=== PATIENT | female | born 1930 | race Caucasian/White ===

== ENCOUNTER → 2016-12-20 | Outpatient (CLI) | payer OTHER | LOC: FIMAGING 15:45 | DX: Z12.31 Encounter for screening mammogram for malignant neoplasm of breast (principal) | CPT/HCPCS: G0202 ==

== ENCOUNTER → 2017-02-11 | Outpatient (CLI) | payer OTHER | LOC: BHFA 10:15 | PROVIDERS: ATTEND Internal Medicine Interventional Cardiology | DX: I48.91 Unspecified atrial fibrillation (principal); I49.5 Sick sinus syndrome; Z95.0 Presence of cardiac pacemaker ==

== ENCOUNTER → 2017-02-17 | Outpatient (CLI) | payer OTHER | LOC: BHFA 10:45 | PROVIDERS: ATTEND Internal Medicine Cardiovascular Disease | DX: I48.91 Unspecified atrial fibrillation (principal); R06.02 Shortness of breath ==

== ENCOUNTER → 2017-03-09 | Outpatient (CLI) | payer OTHER | LOC: BHFA 09:00 | PROVIDERS: ATTEND Internal Medicine Cardiovascular Disease | DX: R06.02 Shortness of breath (principal) | CPT/HCPCS: 78452; 93017; A9500; J2785 ==

== ENCOUNTER → 2017-08-22 | Outpatient (CLI) | payer OTHER | LOC: BHFA 10:45 | PROVIDERS: ATTEND Internal Medicine Cardiovascular Disease | DX: R06.02 Shortness of breath (principal); I48.91 Unspecified atrial fibrillation ==

== ENCOUNTER 2017-11-20 18:47 | Inpatient (IN) | payer OTHER ==
--- NOTE | 2017-11-20 19:06 | EDPHY ---
HPI/HX/ROS/PE/MDM Narrative: CHIEF COMPLAINT: Fever HISTORY OF PRESENT ILLNESS: The patient is an 87 y/o female with a history of a pacemaker implant, a-fib, dementia arriving via EMS complaining of a fever. Yesterday her noticed she was complaining of abdominal pain and stayed in bed all day. Today she had a fever of 38.3 degrees and a runny nose. Her found her today watching TV, but she was shaking and hot. She was also more confused than normal and had a temperature of 103 degrees. Her was concerned she was septic. Normally wears oxygen only at night. Received an influenza vaccination this year. HPI provided from . She currently believes it is June or July and does not know the year. No reports of chest pain, shortness of breath, or palpitations, no vomiting, no diarrhea, no known urinary complaints, no headache, or lightheadedness. REVIEW OF SYSTEMS: Review of systems is unobtainable from this patient because of altered mentation. 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 HEENT: Atraumatic. Eyes: No icterus, no injection. Mouth: moist mucous membranes. Pharyngeal erythema. No lesions. Neck: supple with no adenopathy. LUNGS: Clear to auscultation bilaterally, no wheezes, rhonchi or rales. CARDIAC: Regular rate and rhythm, no rubs, murmurs or gallops. ABDOMEN: Soft, nontender, nondistended, bowel sounds normal. BACK: No CVA tenderness. EXTREMITIES: No trauma. No edema. Range of motion is normal throughout. NEURO: Alert and oriented to person not date, place, or time, grossly nonfocal. SKIN: Warm to the touch and dry, no rash. PSYCHIATRIC: Normal mentation, no agitation. Portions of this note were transcribed by a medical laboratory manager. I personally performed a history, physical exam, medical decision making, and confirmed accuracy of information the transcribed note. ED Course: The patient is an 87 y/o female with a history of a pacemaker implant, a-fib, dementia arriving via EMS presenting with a fever (39.2 degrees) and hypoxia (87 %). On exam she has pharyngeal erythema and is only oriented to person. Labs, UA , EKG, and chest x-ray ordered. 1L IV NS administered. 1917: 12-LEAD EKG: Please see the full report in [facility]. My interpretation: Atrial fibrillation with a v-rate of of 68-116, and diffuse ST, T wave changes. 1999: Patient has a WBC of 12.72, lactic acid of 1.5, and a negative influenza. Her chest x-ray reveals cardiomegaly and right basilar atelectasis. 2044: Troponin is 0.041. As mentioned above, EKG does have diffuse ST and T- wave changes suggestive of ischemia. Patient's INR is 1.5 and her BNP is 9, 000. She will need to admitted for further observation for her fever, CHF, and elevated troponin. Patient and her are comfortable with this plan. 324mg PO Aspirin and 40mg IV Lasix administered. 2107: Consulted with hospitalist service, Dr. Valencia accepts admission of this patient. 2140: Patient's UA reveals a UTI. Sepsis Evaluation Note: The patient presents to the ED with potential infection identified as urinary tract infection. The patient did have evidence of sepsis with temperature greater than 38 degree Celsius, heart rate greater than 90, respiratory rate is documented 18 but the patient is hypoxic on room air, and WBC greater than 12, 000. She did not meet criteria for severe sepsis. The her INR is elevated at 1.54, however she is on anticoagulants. She did not receive 30 cc/kilos bolus of fluid secondary to her elevated BNP suggestive of congestive heart failure. Further management of the patient's fever, urinary tract infection, elevated troponin, and elevated BNP will be provided by the hospitalist service. MDM: Differential diagnosis for this patient's presenting complaint of fever, and confusion, was considered including but not limited to pneumonia, urinary tract infection, urosepsis, influenza, bacteremia. Differential for the patient's elevated troponin and EKG changes was considered including but not limited to acute coronary syndrome, demand ischemia, arrhythmia, worsening failure. - Data Points Imaging Results: Impression: 1. No pneumonia or effusion. 2. Cardiomegaly. No failure. Dictated By: Rebel Mckeon MD Imaging: I viewed and interpreted images myself Laboratory Results: Laboratory Results 11/22/17 04:32 11/22/17 04:32 Medications Given: Dabigatran (Pradaxa) 150 mg PO BID [facility] Stop: 05/20/18 08:59 Last Admin: 11/22/17 21:05 Dose: 150 mg Diltiazem HCl (Dilacor Xr) 240 mg PO DAILY [facility] Stop: 05/20/18 08:59 Last Admin: 11/22/17 08:19 Dose: 240 mg Dorzolamide/Timolol (Cosopt) 1 drops LEFTEYE BID [facility] Stop: 05/20/18 08:59 Last Admin: 11/22/17 21:12 Dose: 1 drop Levofloxacin (Levaquin) 750 mg PO Q2D@2100 [facility] Stop: 12/22/17 20:59 Last Admin: 11/22/17 21:05 Dose: 750 mg Losartan Potassium (Cozaar) 100 mg PO DAILY [facility] Stop: 05/20/18 08:59 Last Admin: 11/22/17 08:20 Dose: 100 mg Metronidazole (Flagyl) 500 mg PO Q8HRS [facility] PRN Reason: Protocol Stop: 12/21/17 21:59 Last Admin: 11/23/17 04:02 Dose: 500 mg Miscellaneous Medication (Memantine Hcl [Namenda Xr]) 28 mg PO HS [facility] Stop: 05/20/18 20:59 Last Admin: 11/23/17 02:07 Dose: Not Given Sildenafil Citrate (Revatio) 20 mg PO TIDMEAL [facility] Stop: 05/20/18 07:59 Last Admin: 11/22/17 18:35 Dose: 20 mg Tramadol HCl (Ultram) 50 mg PO Q6 PRN PRN Reason: MODERATE PAIN Stop: 05/20/18 05:13 Last Admin: 11/23/17 04:02 Dose: 50 mg Discontinued Medications Acetaminophen (Tylenol) 1,000 mg PO EDNOW ONE Stop: 11/20/17 20:14 Last Admin: 11/20/17 20:14 Dose: 1,000 mg Aspirin (Aspirin) 324 mg PO EDNOW ONE Stop: 11/20/17 20:47 Last Admin: 11/20/17 20:53 Dose: 324 mg Furosemide (Lasix Injection) 40 mg IVP EDNOW ONE Stop: 11/20/17 20:47 Last Admin: 11/20/17 20:53 Dose: 40 mg Sodium Chloride (Ns) 1,000 mls @ 0 mls/hr IV ONCE ONE PRN Reason: Wide Open Stop: 11/20/17 19:15 Last Admin: 11/20/17 19:24 Dose: 1,000 mls Levofloxacin/Dextrose (Levaquin 750 Mg (Premix)) 150 mls @ 100 mls/hr IV EDNOW ONE PRN Reason: Protocol Stop: 11/20/17 23:10 Last Admin: 11/20/17 21:50 Dose: 150 mls Dextrose (D5w) 1,000 mls @ 75 mls/hr IV CONT MINO Stop: 05/20/18 11:29 Last Admin: 11/21/17 12:09 Dose: 1,000 mls Microbiology Results: MICROBIOLOGY 11/20/17 19:21 Blood Blood Culture - Preliminary Escherichia Coli 11/20/17 19:21 Blood Blood Panel (PCR) - Final Escherichia Coli 11/20/17 19:45 Blood Blood Culture - Preliminary Escherichia Coli 11/20/17 19:40 Urine,Clean Catch Urine Culture - Final Escherichia Coli General Time Seen by Provider: 11/20/17 18:50 Initial Vital Signs: Initial Vital Signs Temperature (C) 39.2 C H 11/20/17 18:53 Heart Rate 111 H 11/20/17 18:53 Respiratory Rate 18 11/20/17 18:53 Blood Pressure 143/77 H 11/20/17 18:53 O2 Sat (%) 87 L 11/20/17 18:53 O2 Delivery Mode Nasal Cannula O2 (L/minute) 2 Allergies/Adverse Reactions: Penicillins Allergy (Verified 02/04/15 11:04) Sulfa (Sulfonamide Antibiotics) Allergy (Verified 02/04/15 11:04) Home Medications: Medication Instructions Recorded Carvedilol Cr [Coreg Cr] 40 mg PO BID@02/04/15 Diltiazem HCl [Cartia Xt] 240 mg PO DAILY 02/04/15 Dorzolamide HCl/Timolol Maleat 1 drop LEFTEYE BID 02/04/15 [Dorzolamide-Timolol Eye Drops] Hydrocodone/Acetaminophen [[place] 1 tab PO DAILY@0500 02/04/15 5/325 (*)] Losartan Potassium [Cozaar 50 mg 100 mg PO DAILY 02/04/15 (*)] Memantine HCl [Namenda Xr] 28 mg PO HS 02/04/15 Dabigatran Etexilate Mesyl 150 mg PO BID 02/05/15 [Pradaxa 150 MG (*)] Furosemide [Lasix 40 MG (*)] 40 mg PO DAILY 11/20/17 Herbals/Supplements -Info Only 1 ea PO DAILY 11/20/17 Mirtazapine 15 mg PO HS PRN 11/20/17 Sildenafil Citrate [Revatio 20 MG 20 mg PO TIDMEAL 11/20/17 (*)] traMADol [Ultram 50 mg (*)] 50 mg PO Q6 PRN 11/20/17 Departure - Departure Disposition: [facility] Acute Clinical Impression: Elevated troponin Fever Qualifiers: Fever type: unspecified Qualified Code(s): R50.9 - Fever, unspecified CHF (congestive heart failure) Qualifiers: Congestive heart failure type: unspecified Congestive heart failure chronicity : acute Qualified Code(s): I50.9 - Heart failure, unspecified UTI (urinary tract infection) Qualifiers: Urinary tract infection type: site unspecified Hematuria presence: without hematuria Qualified Code(s): N39.0 - Urinary tract infection, site not specified Condition: Fair Report Scribed for: Danielle Bonilla Report Scribed by: Mariza Nelson Date of Report: 11/20/17 Time of Report: 19:01
[2017-11-20] MEDS ORDERED: NS 1,000 ML IV ONE (19:14)
[2017-11-20 19:17] LABS: PLATELET COUNT 172 10^3/uL (150-400)
--- NOTE | 2017-11-20 19:20 | CPEKG ---
Heart Rate: 98 RR Interval: 612 QRSD Interval: 102 QT Interval: 332 QTC Interval: 424 QRS [place]: -8 T Wave [place]: 137 EKG Severity - ABNORMAL ECG - EKG Impression: ATRIAL FIBRILLATION, V-RATE 68-116 EKG Impression: REPOL ABNRM SUGGESTS ISCHEMIA, LATERAL LEADS Electronically Signed By: Danielle Bonilla 21-Nov-2017 15:49:21
[2017-11-20 19:51] LABS: INR 1.54 (0.83-1.16); PROTIME(PATIENT) 18.6 SEC (12.0-15.0)
[2017-11-20] MEDS ORDERED: ACETAMINOPHEN 500 MG TAB PO ONE (20:13)
[2017-11-20] MEDS ORDERED: ASPIRIN 81 MG CHEWABLE TAB PO ONE (20:46)
[2017-11-20] MEDS ORDERED: FUROSEMIDE 40 MG/4 ML VIAL IVP ONE (20:46)
[2017-11-20] MEDS ORDERED: ONDANSETRON 4 MG/2 ML VIAL IVP PRN (22:20)
[2017-11-20] MEDS ORDERED: ONDANSETRON DISINTEGRATING 4 MG TAB PO PRN (22:20)
[2017-11-20] MEDS ORDERED: ACETAMINOPHEN 325 MG TAB PO PRN (22:20)
--- NOTE | 2017-11-21 01:12 | PDGENHP ---
History and Physical - Chief Complaint Fatigue - History of Present Illness 87 yo F w/ AF presents with fever, fatigue, and mild confusion. Patient reports symptoms of primarily fatigue for 2 days. Then today she was noted to be febrile and mildly confused. She was brought in to the ED as a result. Evaluation in the ED notable for clearly infectious UA, leukocytosis, and fever. Patient reports this is similar to previous presentations for UTI. History Information - Allergies/Home Medication List Allergies/Adverse Reactions: Penicillins Allergy (Verified 02/04/15 11:04) Sulfa (Sulfonamide Antibiotics) Allergy (Verified 02/04/15 11:04) Home Medications: Carvedilol Cr [Coreg Cr] 40 mg PO BID 02/04/15 [Last Taken 11/18/17] Diltiazem HCl [Cartia Xt] 240 mg PO DAILY 02/04/15 [Last Taken 11/18/17] Dorzolamide HCl/Timolol Maleat [Dorzolamide-Timolol Eye Drops] 1 drop LEFTEYE BID 02/04/15 [Last Taken Unknown] Hydrocodone/Acetaminophen [[place] 5/325 (*)] 1 tab PO DAILY@0500 02/04/15 [Last Taken 11/18/17] Losartan Potassium [Cozaar 50 mg (*)] 100 mg PO DAILY 02/04/15 [Last Taken 11/18] Memantine HCl [Namenda Xr] 28 mg PO HS 02/04/15 [Last Taken 11/18/17] Dabigatran Etexilate Mesyl [Pradaxa 150 MG (*)] 150 mg PO BID 02/05/15 [Last Taken 11/18/17] Furosemide [Lasix 40 MG (*)] 40 mg PO DAILY 11/20/17 [Last Taken 11/18/17] Herbals/Supplements -Info Only 1 ea PO DAILY 11/20/17 [Last Taken Unknown] Mirtazapine 15 mg PO HS PRN 11/20/17 [Last Taken 11/18/17] Sildenafil Citrate [Revatio 20 MG (*)] 20 mg PO TIDMEAL 11/20/17 [Last Taken 12/04] traMADol [Ultram 50 mg (*)] 50 mg PO Q6 PRN 11/20/17 [Last Taken 11/18/17] I have personally reviewed and updated: family history, medical history - Past Medical History atrial fibrillation - Family History Positive for: cancer - Social History Smoking Status: Never smoked Review of Systems Review of Systems: ROS: 10pt was reviewed & negative except for what was stated in HPI & below Physical Exam Physical Exam: Temp Pulse Resp BP Pulse Ox 36.8 C 87 17 128/76 H 94 11/20/17 22:00 11/20/17 22:00 11/20/17 22:00 11/20/17 22:00 11/20/17 22:00 O2 (L/minute) 2 Constitutional: no apparent distress, not in pain Eyes: PERRL, EOMI Ears, Nose, Mouth, Throat: moist mucous membranes, no oral mucosal ulcers Cardiovascular: systolic murmur, irregularly irregular Respiratory: no respiratory distress, clear to auscultation Gastrointestinal: normoactive bowel sounds, soft, non-tender abdomen Skin: warm, normal color Musculoskeletal: full muscle strength, no muscle tenderness Neurologic: CN II-XII Intact, other (A&Ox2) Psychiatric: interacting appropriately, not anxious Lab Data & Imaging Review 11/20/17 18:57 11/20/17 18:57 WBC 12.72 10^3/uL (3.80-9.50) H 11/20/17 18:57 RBC 4.40 10^6/uL (4.18-5.33) 11/20/17 18:57 Hgb 14.8 g/dL (12.6-16.3) 11/20/17 18:57 Hct 43.3 % (38.0-47.0) 11/20/17 18:57 MCV 98.4 fL (81.5-99.8) 11/20/17 18:57 MCH 33.6 pg (27.9-34.1) 11/20/17 18:57 MCHC 34.2 g/dL (32.4-36.7) 11/20/17 18:57 RDW 14.2 % (11.5-15.2) 11/20/17 18:57 Plt Count 172 10^3/uL (150-400) 11/20/17 18:57 MPV 10.8 fL (8.7-11.7) 11/20/17 18:57 Neut % (Auto) 87.0 % (39.3-74.2) H 11/20/17 18:57 Lymph % (Auto) 8.3 % (15.0-45.0) L 11/20/17 18:57 [place] % (Auto) 3.5 % (4.5-13.0) L 11/20/17 18:57 Eos % (Auto) 0.0 % (0.6-7.6) L 11/20/17 18:57 Baso % (Auto) 0.5 % (0.3-1.7) 11/20/17 18:57 Nucleat RBC Rel Count 0.0 % (0.0-0.2) 11/20/17 18:57 Absolute Neuts (auto) 11.07 10^3/uL (1.70-6.50) H 11/20/17 18:57 Absolute Lymphs (auto) 1.05 10^3/uL (1.00-3.00) 11/20/17 18:57 Absolute Monos (auto) 0.45 10^3/uL (0.30-0.80) 11/20/17 18:57 Absolute Eos (auto) 0.00 10^3/uL (0.03-0.40) L 11/20/17 18:57 Absolute Basos (auto) 0.06 10^3/uL (0.02-0.10) 11/20/17 18:57 Absolute Nucleated RBC 0.00 10^3/uL (0-0.01) 11/20/17 18:57 Immature Gran % 0.7 % (0.0-1.1) 11/20/17 18:57 Immature Gran # 0.09 10^3/uL (0.00-0.10) 11/20/17 18:57 PT 18.6 SEC (12.0-15.0) H 11/20/17 19:00 INR 1.54 (0.83-1.16) H 11/20/17 19:00 APTT 44.5 SEC (23.0-38.0) H 11/20/17 19:00 VBG Lactic Acid 1.4 mmol/L (0.7-2.1) 11/20/17 19:21 Sodium 146 mEq/L (135-145) H 11/20/17 18:57 Potassium 4.6 mEq/L (3.5-5.2) 11/20/17 18:57 Chloride 108 mEq/L (97-110) 11/20/17 18:57 Carbon Dioxide 16 mEq/l (22-31) L 11/20/17 18:57 Anion Gap 22 mEq/L (8-16) H 11/20/17 18:57 BUN 27 mg/dL (7-23) H 11/20/17 18:57 Creatinine 0.9 mg/dL (0.6-1.0) 11/20/17 18:57 Estimated GFR 59 11/20/17 18:57 Glucose 139 mg/dL (70-100) H 11/20/17 18:57 Calcium 10.4 mg/dL (8.5-10.4) 11/20/17 18:57 Total Bilirubin 1.9 mg/dL (0.1-1.4) H 11/20/17 19:30 Conjugated Bilirubin 0.7 mg/dL (0.0-0.5) H 11/20/17 19:30 Unconjugated Bilirubin 1.2 mg/dL (0.0-1.1) H 11/20/17 19:30 AST 43 IU/L (14-46) 11/20/17 19:30 ALT 14 IU/L (9-52) 11/20/17 19:30 Alkaline Phosphatase 73 IU/L (38-126) 11/20/17 19:30 Troponin I 0.041 ng/mL (0.000-0.034) H 11/20/17 19:21 NT-Pro-B Natriuret Pep 9260 pg/mL (0-450) H 11/20/17 19:21 Total Protein 7.9 g/dL (6.3-8.2) 11/20/17 19:30 Albumin 4.3 g/dL (3.5-5.0) 11/20/17 19:30 Lipase 66 IU/L (23-300) 11/20/17 19:30 Urine Color YELLOW 11/20/17 20:40 Urine Appearance MODERATELY TURBID 11/20/17 20:40 Urine pH 5.0 (5.0-7.5) 11/20/17 20:40 Ur Specific [place] 1.016 (1.002-1.030) 11/20/17 20:40 Urine Protein 2+ (NEGATIVE) H 11/20/17 20:40 Urine Ketones NEGATIVE (NEGATIVE) 11/20/17 20:40 Urine Blood 2+ (NEGATIVE) H 11/20/17 20:40 Urine Nitrate NEGATIVE (NEGATIVE) 11/20/17 20:40 Urine Bilirubin NEGATIVE (NEGATIVE) 11/20/17 20:40 Urine Urobilinogen NEGATIVE EU (0.2-1.0) 11/20/17 20:40 Ur Leukocyte Esterase 2+ (NEGATIVE) H 11/20/17 20:40 Urine RBC 25-50 /hpf (0-3) H 11/20/17 20:40 Urine WBC 50-182 /hpf (0-3) H 11/20/17 20:40 Ur Epithelial Cells TRACE /lpf (NONE-1+) 11/20/17 20:40 Urine Bacteria 4+ /hpf (NONE SEEN) H 11/20/17 20:40 Urine Mucus 3+ /lpf (NONE-1+) H 11/20/17 20:40 Urine Glucose NEGATIVE (NEGATIVE) 11/20/17 20:40 Nasal Influenza A PCR NEGATIVE FOR FLU A (NEGATIVE) 11/20/17 18:57 Nasal Influenza B PCR NEGATIVE FOR FLU B (NEGATIVE) 11/20/17 18:57 Imaging Review: Imaging Impressions Chest X-Ray 11/20/17 19:11 Impression: 1. No pneumonia or effusion. 2. Cardiomegaly. No failure. Visualized and Interpreted EKG results: Yes EKG Interpretation: Positive for: other (Atrial fibrillation) Assessment & Plan Assessment: 87 yo F w/ AF presents with fever and fatigue found to have a UTI. Plan: 1. Sepsis 2/2 UTI - Sepsis per fever, tachycardia, and leukocytosis. Source most likely urinary tract infection noting clearly infectious UA, normal CXR, and lack of localizing symptoms. Patient has a severe beta-lactam allergy as she reports anaphylaxis 10 years ago while in [place]. Flu negative. - Levofloxacin 750 mg IV qD noting severe B-lactam allergy - Blood and urine cultures ordered 2. Abnormal LFTs - Mildly elevated bilirubin with on abdominal symptoms. She denies vomiting, abdominal pain, and diarrhea. - Trend LFTs 3. Elevated troponin - Very modest elevation in setting of sepsis, suspect myocardial demand. - Monitor on telemetry, trend cardiac enzymes 4. HFpEF - Appears euvolemic on exam and no pulmonary edema on CXR despite elevated BNP. She takes furosemide 40 mg PO daily at home in addition to BB and ARB. 5. Hx AF - Takes dabigatran for AC and diltiazem for rate control. 6. pHTN - Follows with Dr. Oneal. Diet - Regular Code - Full Ppx - dabigatran Dispo - Admit under observation status
[2017-11-21 04:42] LABS: PLATELET COUNT 134 10^3/uL (150-400)
[2017-11-21] MEDS ORDERED: MIRTAZAPINE 15 MG TAB PO PRN (05:14)
--- NOTE | 2017-11-21 08:47 | HOSPPROG ---
Hospitalist Progress Note Assessment/Plan: #E coli bacteremia: IV LQ with PCN-allergy. No CVA TTP. Await culture data #UTI: plan as above #Indeterminate trop: suspect demand with bacteremia. No CP #Pulm HTN: echo 09/02 with RVSP 65mmHg #Fever: now afebrile for 24hrs. If fevers again, check renal US for abscess #Hypernatremia: resolved with D5 #Leukocytosis: improved with abx #Diet: regular #DVt ppx: Pradaxa #Disp: warrants inpatient admission for bacteremia, requires IV abx Subjective: no abd pain. s/p choley today Objective: Vital Signs Temp Pulse Resp BP Pulse Ox 36.4 C 78 17 146/77 H 98 11/21/17 04:21 11/21/17 04:21 11/21/17 04:21 11/21/17 04:21 11/21/17 04:21 Laboratory Results 11/21/17 03:55 11/21/17 03:55 11/20/17 11/21/17 11/22/17 05:59 05:59 05:59 Intake Total 1500 Output Total 400 Balance 1100 PT 18.6 SEC (12.0-15.0) H 11/20/17 19:00 INR 1.54 (0.83-1.16) H 11/20/17 19:00 - Physical Exam Constitutional: no apparent distress Eyes: PERRL Ears, Nose, Mouth, Throat: moist mucous membranes Cardiovascular: regular rate and rhythym Respiratory: no respiratory distress Gastrointestinal: normoactive bowel sounds, soft, non-tender abdomen Genitourinary: no bladder fullness, other (no CVA TTP), No no bladder tenderness Skin: warm ICD10 Worksheet Patient Problems: Problems Problem Status Onset CHF (congestive heart failure) Acute Elevated troponin Acute Fever Acute UTI (urinary tract infection) Acute Pyelonephritis Acute
[2017-11-21] MEDS ORDERED: cefTRIAXone 1 GM in STERILE WATER INJ 10 ML IV SCH (09:00)
[2017-11-21] MEDS: SILDENAFIL CITRATE 20 MG TAB PO SCH ×3 (09:24→17:14)
[2017-11-21] MEDS: DORZOLAMIDE/TIMOLOL 10 ML OPHT.BTL LEFTEYE SCH ×3 (09:24→20:41)
[2017-11-21] MEDS: LOSARTAN POTASSIUM 50 MG TAB PO SCH (09:25)
[2017-11-21] MEDS: DILTIAZEM XR 240 MG CAP PO SCH (09:25)
[2017-11-21] MEDS: DABIGATRAN ETEXILATE MESYL 150 MG CAP PO SCH ×2 (09:25→20:41)
[2017-11-21] MEDS ORDERED: D5W 1,000 ML IV SCH (11:30)
--- NOTE | 2017-11-21 12:15 | WOCRNPDOC ---
[facility] Advanced Assessment Note - Skin Integrity Problem, Advanced Assess Left Third Toe Dressing Type: Telfa Wound Bed Constitution: Scab Site Measurement - Head-to-Toe Length X Width X Depth (cm): 0.6x0.3x0 Skin Integrity Problem Comment: Per report from patient she banged her toe on her walker in September. No sign of infection. May cover with bandaid. No concerns. Wound care will not follow.
--- NOTE | 2017-11-21 14:44 | ASMTCMCOM ---
CM Note CM Note Notes: 11/21/2017 Case Management Note Discussed pt in rounds. Met w/pt and Jacob [phone]. Pt lives at [facility]. She has a manager home improvement from [facility] for wound care 1 - 2 x/week. Faxed update to [facility]. Pt has unskilled care in the mornings for help showering through [employer] [phone]. Notified both agencies of hospital admission. There are no PT evals ordered at this time. Case Management d/c poc: return to [facility] with resumption of previous services. Case Management to follow. Date Signed: 11/21/2017 02:43 PM Electronically Signed By:Edna Munoz RN
[2017-11-21] MEDS: metroNIDAZOLE 500 MG TAB PO SCH (20:40)
[2017-11-21] MEDS: traMADol 50 MG TAB PO PRN (20:41)
[2017-11-21] MEDS: Memantine Hcl [Namenda Xr] 28 MG PO SCH (21:27)
[2017-11-22] MEDS: metroNIDAZOLE 500 MG TAB PO SCH ×3 (05:31→21:18)
[2017-11-22] MEDS: DILTIAZEM XR 240 MG CAP PO SCH (08:19)
[2017-11-22] MEDS: DORZOLAMIDE/TIMOLOL 10 ML OPHT.BTL LEFTEYE SCH ×3 (08:20→21:12)
[2017-11-22] MEDS: SILDENAFIL CITRATE 20 MG TAB PO SCH ×3 (08:20→18:35)
[2017-11-22] MEDS: DABIGATRAN ETEXILATE MESYL 150 MG CAP PO SCH ×2 (08:20→21:05)
[2017-11-22] MEDS: LOSARTAN POTASSIUM 50 MG TAB PO SCH (08:20)
--- NOTE | 2017-11-22 09:30 | PDMN ---
Medical Necessity Medical necessity: Change to IP, as of 11/22/17, per MD; los >2 m for ongoing management of E coli bacteremia, UTI & C diff; admit for further monitoring, IV abx & therapy; per progress note & order 11/22/17
--- NOTE | 2017-11-22 16:23 | HOSPPROG ---
Hospitalist Progress Note Assessment/Plan: #E coli bacteremia: IV LQ with PCN-allergy. No CVA TTP. Repeat blood cultures today and transition to oral abx if remains clear #Acute C diff: Flagyl #UTI: plan as above #Indeterminate trop: suspect demand with bacteremia. No CP #Pulm HTN: echo 09/02 with RVSP 65mmHg #Fever: now afebrile for 24hrs. If fevers again, check renal US for abscess #Hypernatremia: resolved with D5 #Leukocytosis: resolved with abx #Diet: regular #Deconditioning: DC to [facility] when clinically improved #DVt ppx: Pradaxa #Disp: warrants inpatient admission for bacteremia, requires IV abx Subjective: few loose stools today. No CVA TTP Objective: Vital Signs Temp Pulse Resp BP Pulse Ox 36.7 C 71 19 122/59 H 96 11/22/17 11:57 11/22/17 11:57 11/22/17 11:57 11/22/17 11:57 11/22/17 11:57 11/21/17 11/22/17 11/23/17 05:59 05:59 05:59 Intake Total 240 Output Total 400 Balance -160 PT 18.6 SEC (12.0-15.0) H 11/20/17 19:00 INR 1.54 (0.83-1.16) H 11/20/17 19:00 - Physical Exam Constitutional: no apparent distress Eyes: PERRL Ears, Nose, Mouth, Throat: moist mucous membranes Cardiovascular: regular rate and rhythym, No edema Respiratory: no respiratory distress Gastrointestinal: normoactive bowel sounds Genitourinary: no bladder fullness Skin: warm Musculoskeletal: full muscle strength Neurologic: AAOx3, CN II-XII Intact Psychiatric: interacting appropriately ICD10 Worksheet Patient Problems: Problems Problem Status Onset CHF (congestive heart failure) Acute Elevated troponin Acute Fever Acute UTI (urinary tract infection) Acute Pyelonephritis Acute
[2017-11-23] MEDS: Memantine Hcl [Namenda Xr] 28 MG PO SCH ×2 (02:07→21:02)
[2017-11-23] MEDS: metroNIDAZOLE 500 MG TAB PO SCH ×2 (04:02→13:11)
[2017-11-23] MEDS: traMADol 50 MG TAB PO PRN ×2 (04:02→21:01)
[2017-11-23] MEDS: LOSARTAN POTASSIUM 50 MG TAB PO SCH (10:30)
[2017-11-23] MEDS: DABIGATRAN ETEXILATE MESYL 150 MG CAP PO SCH ×2 (10:31→21:01)
[2017-11-23] MEDS: DILTIAZEM XR 240 MG CAP PO SCH (10:31)
[2017-11-23] MEDS: SILDENAFIL CITRATE 20 MG TAB PO SCH ×3 (10:31→17:58)
[2017-11-23] MEDS: DORZOLAMIDE/TIMOLOL 10 ML OPHT.BTL LEFTEYE SCH ×2 (10:32→21:03)
--- NOTE | 2017-11-23 11:54 | HOSPPROG ---
Hospitalist Progress Note Assessment/Plan: #E coli bacteremia: IV LQ with PCN-allergy. No CVA TTP. Repeat blood cultures NGTD, will treat for 10 days #Acute C diff: Day 2 abx #UTI: treated with LQ #Indeterminate trop: suspect demand with bacteremia. No CP #Pulm HTN: echo 09/02 with RVSP 65mmHg #Fever: resolved #Hypernatremia: resolved with D5 #Leukocytosis: resolved with abx #Diet: regular #Deconditioning: DC to [facility] when clinically improved with home health , PT #DVt ppx: Pradaxa #Disp: warrants inpatient admission for bacteremia, C diff. If clinically stable , may be able to DC tomorrow Subjective: loose stools. Upset stomach this morning Objective: Vital Signs Temp Pulse Resp BP Pulse Ox 36.9 C 94 19 141/75 H 92 11/23/17 08:06 11/23/17 08:06 11/23/17 08:08 11/23/17 08:06 11/23/17 08:08 Laboratory Results 11/23/17 07:24 11/22/17 11/23/17 11/24/17 05:59 05:59 05:59 Intake Total 2040 Output Total 600 225 Balance 1440 -225 PT 18.6 SEC (12.0-15.0) H 11/20/17 19:00 INR 1.54 (0.83-1.16) H 11/20/17 19:00 - Physical Exam Constitutional: other (tired-appearing, sitting up in chair) Ears, Nose, Mouth, Throat: moist mucous membranes Cardiovascular: regular rate and rhythym, no murmur, rub, or gallop, edema (+1 pedal edema) Respiratory: other (few crackles left base) Gastrointestinal: normoactive bowel sounds, other (surgical incisions CDI) Genitourinary: no bladder fullness Skin: warm Musculoskeletal: generalized weakness Neurologic: AAOx3, CN II-XII Intact Psychiatric: interacting appropriately, flat affect ICD10 Worksheet Patient Problems: Problems Problem Status Onset CHF (congestive heart failure) Acute Elevated troponin Acute Fever Acute UTI (urinary tract infection) Acute Pyelonephritis Acute
[2017-11-23] MEDS: VANCOMYCIN 125 MG/2.5 ML UDL PO SCH ×2 (15:52→21:01)
[2017-11-24] MEDS: VANCOMYCIN 125 MG/2.5 ML UDL PO SCH ×2 (06:36→12:40)
[2017-11-24] MEDS: SILDENAFIL CITRATE 20 MG TAB PO SCH ×2 (08:52→12:40)
[2017-11-24] MEDS: DABIGATRAN ETEXILATE MESYL 150 MG CAP PO SCH (08:52)
[2017-11-24] MEDS: DORZOLAMIDE/TIMOLOL 10 ML OPHT.BTL LEFTEYE SCH (08:52)
[2017-11-24] MEDS: DILTIAZEM XR 240 MG CAP PO SCH (08:52)
[2017-11-24] MEDS: LOSARTAN POTASSIUM 50 MG TAB PO SCH (08:53)
[2017-11-24] MEDS ORDERED: FUROSEMIDE 20 MG TAB PO SCH (09:00)
--- NOTE | 2017-11-24 10:29 | HOSPPROG ---
Hospitalist Progress Note Assessment/Plan: #E coli bacteremia: IV LQ with PCN-allergy. No CVA TTP. Repeat blood cultures NGTD; treat 10 days from negative cultures 11/22 #Acute C diff: treat for 10 days, PO vanc #UTI: treated with LQ #Indeterminate trop: suspect demand with bacteremia. No CP #Pulm HTN: echo 09/02 with RVSP 65mmHg #Fever: resolved #Hypernatremia: resolved with D5 #Leukocytosis: resolved with abx #Sepsis: due to C diff and E Coli bacteremia. Resolved #Diet: regular #Deconditioning: DC to [facility] when clinically improved with home health , PT #DVt ppx: Pradaxa #Disp: DC to [facility] with RN, PT/OT Subjective: more formed stools. Objective: Vital Signs Temp Pulse Resp BP Pulse Ox 36.1 C 102 H 18 120/76 91 L 11/24/17 08:02 11/24/17 09:45 11/24/17 08:02 11/24/17 08:02 11/24/17 09:45 Laboratory Results 11/24/17 04:15 11/23/17 11/24/17 11/25/17 05:59 05:59 05:59 Intake Total 2040 700 Output Total 600 945 100 Balance 1440 -245 -100 PT 18.6 SEC (12.0-15.0) H 11/20/17 19:00 INR 1.54 (0.83-1.16) H 11/20/17 19:00 - Time Spent With Patient Time Spent with Patient: greater than 35 minutes Time Spent with Patient: Greater than 35 minutes spent on this patients care, greater than 50% of time spent counseling, educating, and coordinating care regarding the above mentioned plan. - Physical Exam Constitutional: no apparent distress Eyes: PERRL Ears, Nose, Mouth, Throat: moist mucous membranes Cardiovascular: regular rate and rhythym Respiratory: no respiratory distress, no rales or rhonchi Gastrointestinal: normoactive bowel sounds, No tenderness Genitourinary: no bladder fullness Skin: warm Musculoskeletal: full muscle strength Neurologic: AAOx3, CN II-XII Intact ICD10 Worksheet Patient Problems: Problems Problem Status Onset Pyelonephritis Acute Fever Acute CHF (congestive heart failure) Acute Elevated troponin Acute UTI (urinary tract infection) Acute
[2017-11-24 11:13] VITALS: TEMP 97.9
--- NOTE | 2017-11-24 11:18 | PDIAF ---
- Diagnosis Diagnosis: E coli Code Status: Full Code - Medication Management Discharge Medications: Medications to Continue on Transfer Carvedilol Cr [Coreg Cr] 40 mg PO BID@12,19 02/04/15 [Last Taken 11/18/17] Diltiazem HCl [Cartia Xt] 240 mg PO DAILY 02/04/15 [Last Taken 11/18/17] Dorzolamide HCl/Timolol Maleat [Dorzolamide-Timolol Eye Drops] 1 drop LEFTEYE BID 02/04/15 [Last Taken Unknown] Hydrocodone/Acetaminophen [Krebs 5/325 (*)] 1 tab PO DAILY@0500 02/04/15 [Last Taken 11/18/17] Losartan Potassium [Cozaar 50 mg (*)] 100 mg PO DAILY 02/04/15 [Last Taken 11/18] Memantine HCl [Namenda Xr] 28 mg PO HS 02/04/15 [Last Taken 11/18/17] Dabigatran Etexilate Mesyl [Pradaxa 150 MG (*)] 150 mg PO BID 02/05/15 [Last Taken 11/18/17] Furosemide [Lasix 40 MG (*)] 40 mg PO DAILY 11/20/17 [Last Taken 11/18/17] Herbals/Supplements -Info Only 1 ea PO DAILY 11/20/17 [Last Taken Unknown] Mirtazapine 15 mg PO HS PRN 11/20/17 [Last Taken 11/18/17] Sildenafil Citrate [Revatio 20 MG (*)] 20 mg PO TIDMEAL 11/20/17 [Last Taken 12/04] traMADol [Ultram 50 mg (*)] 50 mg PO Q6 PRN 11/20/17 [Last Taken 11/18/17] Discharge Medications: Refer to the Discharge Home Medication list for PRN reason. - Orders Services needed: Home Care, Registered Nurse, Physical Therapy, Occupational Therapy Home Care Face to Face: I certify that this patient was under my care and that I had the required [id number] encounter meeting the encounter requirements on the discharge day. My findings support the fact that the patient is homebound as defined in Home Care Face to Face Continued: CMS Chapter 7 Medicare Benefits Manual 30.1.1 , The condition of the patient is such that there exists a normal inability to leave home and consequently, leaving home would require a considerable and taxing effort. Isolation Type: CDIFF Isolation Diet Recommendation: no restrictions on diet Diet Texture: Regular Texture Diet - Follow Up Care Current Providers and Referrals: Patient,NotPresent [Unknown] - As per Instructions
[2017-11-24 11:20] VITALS: BP 124/66; PULSE 70; RESP 25; O2SAT 91
--- NOTE | 2017-11-24 20:08 | GDS ---
[f rep st] DISCHARGE SUMMARY DISCHARGE DIAGNOSES: 1. E coli bacteremia. 2. Urinary tract infection. 3. Clostridium difficile colitis. 4. Urinary tract infection, indeterminate troponin. 5. Pulmonary hypertension. 6. Fever. Hyponatremia. 7. Leukocytosis. 8. Sepsis. HISTORY OF PRESENT ILLNESS: A pleasant 87-year-old female with history of recurrent UTI, atrial fibr illation, who presented with fever, fatigue, and mild confusion. [place] more tired over the last 2 day s. She was noted at home to be febrile and mildly confused, thus was brought to the ED. She had a p ositive UA in the ER and was admitted for further evaluation. HOSPITAL COURSE BY PROBLEM: 1. Sepsis secondary to Escherichia coli bacteremia due to urinary tract infection: This resolved. She was treated with renally dosed Levaquin. Will treat for a total of 10 days from negative culture s on 11/22/2017. 2. Leukocytosis: This resolved with antibiotics. 3. Acute Clostridium difficile infection: She will be treated with 10 days of p.o. vancomycin. 4. Atrial fibrillation: Rate controlled on diltiazem and Coreg. 5. Pulmonary hypertension: Stable. This demonstrated on echo in August 2017 with an RVSP of 65 m mHg. Continue Lasix. 6. Fever: Resolved. 7. Hyponatremia: Resolved with D5. 8. Deconditioning: She will discharge back to [facility] with home health and PT. DISPOSITION: Patient is stable for discharge back to [facility] with home nurse, PT and OT. NEW MEDICATIONS: 1. Levaquin renally dosed for 3 days. 2. P.O. vancomycin. FOLLOWUP: 1. Primary care physician. 2. [place]. /[id number]/[facility]
--- NOTE | 2017-11-25 11:24 | ASDISCHSUM ---
Discharge Information Plan Status:Home with Home Health Medically Cleared to Leave:11/23/2017 Discharge Date:11/24/2017 04:06 PM CM D/C Disposition: ADT D/C Disposition:Long Term Facility Projected Discharge Date:11/24/2017 11:00 AM Transportation at D/C: Discharge Delay Reason: Follow-Up Date:11/24/2017 11:00 AM Discharge Slot: Final Diagnosis: Placement Information Referral Type:*Home Health Care Services Referral ID:[id number] Provider Name:[facility] Address 1:[address] [facility] Phone Number: Address 2: Fax Number: City:[place] Selection Factors: State:[place] Patient Contact Information Contact Name:LEILA Relationship: Address:[address] Work Phone: [facility]:[place] Alternate Phone: [facility]/Zip Code:[place] [address] Email: Financial Information Financial Class:Medicare Primary Plan Desc:MEDICARE INPATIENT Primary Plan Number:[id number] Secondary Plan Desc:[facility] POS Secondary Plan Number:[id number] Assessment Information [facility] CM Progress Note CM Note CM Note Notes: 11/21/2017 Case Management Note Discussed pt in rounds. Met w/pt and Jacob [phone]. Pt lives at [facility]. She has a home theater experience expert from [facility] for wound care 1 - 2 x/week. Faxed update to [facility]. Pt has unskilled care in the mornings for help showering through [facility] [phone]. Notified both agencies of hospital admission. There are no PT evals ordered at this time. Case Management d/c poc: return to [facility] with resumption of previous services. Case Management to follow. Date Signed: 11/21/2017 02:43 PM Electronically Signed By:Edna Munoz RN Case Management Discharge Plan Note Case Management Discharge Discharge Order Complete? Answers: Yes Patient to Obtain Answers: via Family Medications Transportation Arranged Answers: Family/Friends EMTALA Complete Answers: No Case Management Transport Answers: No Form Complete Faxed Final Orders Answers: Yes Agency/Facility Transfer Answers: Yes Report Printed & Faxed to Receiving Agency Family Notified Answers: No Discharge Comments Notes: Pts case discussed in morning rounds. Pt is being discharged back to [facility]. DC orders sent to [facility]. Family will continue w/ non skilled HC. CM available for changes. Plan: [facility], PT,OT,RN and non skilled HC Date Signed: 11/24/2017 12:13 PM Electronically Signed By:ROLAND Sanchez Intervention Information Intervention Type:*Incorrect Registration Date of Service:11/21/2017 10:24 AM Patient Type:Inpatient Staff Member:COLTON Valencia Courtney Hours: Discipline: Severity: Comment: Intervention Type:*MINOR-Signed Date of Service:11/21/2017 04:04 PM Patient Type:Observation Staff Member:Michaelle Shah Hours: Discipline: Severity: Comment: Intervention Type:*IM-Signed Date of Service:11/24/2017 12:33 PM Patient Type:Inpatient Staff Member:Michaelle Shah Hours: Discipline: Severity: Comment:
== END 2017-11-24 16:06 | DRG 872 ==
LOC: EDUNIT# → INTOOBSV 21:03 → F2W 22:00 → OBSVTOIN 11-22 09:08
PROVIDERS: ADMIT Internal Medicine; ATTEND Internal Medicine
DX: A41.51 Sepsis due to Escherichia coli [E. coli] (principal); N39.0 Urinary tract infection, site not specified; A04.72 Enterocolitis due to Clostridium difficile, not specified as recurrent; E87.1 Hypo-osmolality and hyponatremia; I27.20 Pulmonary hypertension, unspecified; I48.91 Unspecified atrial fibrillation; F03.90 Unspecified dementia, unspecified severity, without behavioral disturbance, psychotic disturbance, mood disturbance, and anxiety
CPT/HCPCS: 96365; 97116-GP; 97161-GP; 97165-GO; 97535-GO; G0378; G8978-GP-CJ; G8979-GP-CI; G8987-GO-CJ; G8988-GO-CI; G8989-GO-CI; J0696; J1940; J1956; J2405

== ENCOUNTER → 2018-01-12 | Outpatient (CLI) | payer OTHER | LOC: FIMAGING 10:34 | PROVIDERS: ATTEND Family Medicine Geriatric Medicine | DX: Z12.31 Encounter for screening mammogram for malignant neoplasm of breast (principal); Z85.3 Personal history of malignant neoplasm of breast ==

== ENCOUNTER 2018-09-24 09:22 | Inpatient (IN) | payer OTHER ==
--- NOTE | 2018-09-24 09:35 | EDPHY ---
H & P Stated Complaint: "black stool" x ~1 wk (on pradaxa), weakness, R upper abd pain Time Seen by Provider: 09/24/18 09:35 - Personal History Tetanus Vaccine Date: 2011 - Medical/Surgical History Hx Asthma: No Hx Chronic Respiratory Disease: No Hx Diabetes: No Hx Cardiac Disease: Yes Hx Renal Disease: No Hx Cirrhosis: No Hx Alcoholism: No Hx HIV/AIDS: No Hx Splenectomy or Spleen Trauma: No Other PMH: PACEMAKER, Afib, hypertension, glaucoma, - Social History Smoking Status: Never smoked Constitutional: Initial Vital Signs Temperature (C) 36.5 C 09/24/18 09:25 Heart Rate 82 09/24/18 09:25 Respiratory Rate 16 09/24/18 09:25 Blood Pressure 101/59 L 09/24/18 09:25 O2 Sat (%) 97 09/24/18 09:25 O2 Delivery Mode Room Air Allergies/Adverse Reactions: Penicillins Allergy (Verified 09/24/18 10:33) Anaphylaxis Sulfa (Sulfonamide Antibiotics) Allergy (Verified 09/24/18 10:33) Rash Home Medications: Medication Instructions Recorded Ascorbic Acid [Vitamin C 500 mg 500 mg PO DAILY 09/24/18 (*)] Coreg 09/24/18 Cozaar 09/24/18 Cyanocobalamin [Vitamin B12 (*)] 1,000 mcg PO DAILY 09/24/18 Diltiazem 09/24/18 Dorzolamide HCl/Timolol Maleat 1 drop LEFTEYE BID 09/24/18 [Dorzolamide-Timolol Eye Drops] Furosemide [Lasix 20 MG (*)] 20 mg PO SUTUTHSA 09/24/18 Furosemide [Lasix 20 MG (*)] 40 mg PO MOWEFR 09/24/18 Herbals/Supplements -Info Only 1 ea PO DAILY 09/24/18 Mirtazapine [Remeron] 15 mg PO HS PRN 09/24/18 Namenda 10 mg 09/24/18 Pradaxa 09/24/18 Spironolactone 09/24/18 Tramadol HCl 09/24/18 Medical Decision Making ED Course/Re-evaluation: CHIEF COMPLAINT: Black stool x1 week HISTORY OF PRESENT ILLNESS: The patient is an anticoagulated 88 y/o female with a history of atrial fibrillation arriving with her complaining of black stools for the last week. She describes constipation for a few days last week followed by a week of black stools. She describes unformed stools about the consistency of pudding and associated upper abdominal pain. She has never had symptoms like this before. She denies high doses of NSAIDs recently and has not been on aspirin since starting her Pradaxa. She denies nausea, vomiting, fever, cough, urinary symptoms. She has a history of a prior endoscopy that showed a "constricted esophagus" that sounds like she had dilated two years ago. REVIEW OF SYSTEMS: A comprehensive 10 system review of systems is otherwise negative aside from elements mentioned in the history of present illness and medical decision making. PHYSICAL EXAM: HR, BP, O2 Sat, RR. Temp noted General Appearance: Alert, well hydrated, appropriate, and non-toxic appearing. Head: Atraumatic without scalp tenderness or obvious injury Eyes: Pupils equal, round, reactive to light and accommodation, EOMI, no trauma , no injection. Nose: Atraumatic, no rhinorrhea, clear. Throat: Mucus membranes moist. Neck: Supple, nontender, no lymphadenopathy. Respiratory: No retractions, no distress, no wheezes, and no accessory muscle use. Lungs are clear to auscultation bilaterally. Cardiovascular: Regular rate and rhythm, no murmurs, rubs, or gallops. Good capillary refill all extremities. Gastrointestinal: Abdomen is soft, epigastric tenderness, non-distended, no masses, no rebound, no guarding, no peritoneal signs. Musculoskeletal: Normal active ROM of all extremities, atraumatic. Neurological: Alert, appropriate, and interactive. Nonfocal. Skin: No rashes, good turgor, no nodules on palpation. Past medical history: Atrial fibrillation - Pradaxa; hypertension; "constricted esophagus" 2 years ago that sounds like it was dilated per ; glaucoma Past surgical history: Endoscopy and colonoscopy in the last 2 years; pacemaker Family history: noncontributory Social history: at bedside. Retired. Lives in [place]. Prior medical records reviewed including admission 11/2017 for sepsis. DIFFERENTIAL DIAGNOSIS: The differential diagnosis for the patient's upper GI bleeding included but was not limited to ulcer disease, gastritis, Soniya- Payne tear, and esophageal varices. MEDICAL DECISION MAKING: This is an anticoagulated 88 y/o female who presents with a 1-week history of black tarry stools and abdominal pain. She has epigastric tenderness on palpation, but is alert and interactive. Presentation is consistent with upper GI bleed. Plan for IV, labs including type&screen, symptom management, and GI consult. 80mg IV Protonix ordered. Hct 30, INR elevated. Hct is usually in low to mid 40s. 1009: Consulted with Dr. Vargas GI. He will scope during admission. He does not recommend reversing Pradaxa at this time. 1gm IV TXA bolus over 10 minutes followed by a 1gm IV TXA drip ordered. Spoke with hospitalist service. Dr. Balderas accepts admission. - Data Points Laboratory Results: Laboratory Results 09/24/18 09:45 09/24/18 09:45 09/24/18 09/24/18 09/24/18 09:45 09:45 09:45 WBC RBC Hgb Hct MCV MCH MCHC RDW Plt Count MPV Neut % (Auto) Lymph % (Auto) [place] % (Auto) Eos % (Auto) Baso % (Auto) Nucleat RBC Rel Count Absolute Neuts (auto) Absolute Lymphs (auto) Absolute Monos (auto) Absolute Eos (auto) Absolute Basos (auto) Absolute Nucleated RBC Immature Gran % Immature Gran # PT 41.5 SEC H SEC (12.0-15.0) INR 4.40 H (0.83-1.16) APTT 78.2 SEC H SEC (23.0-38.0) Sodium 145 mEq/L mEq/L (135-145) Potassium 4.6 mEq/L mEq/L (3.5-5.2) Chloride 110 mEq/L mEq/L (97-110) Carbon Dioxide 21 mEq/l L mEq/l (22-31) Anion Gap 14 mEq/L mEq/L (6-14) BUN 64 mg/dL H mg/dL (7-23) Creatinine 1.8 mg/dL H mg/dL (0.6-1.0) Estimated GFR 26 Glucose 98 mg/dL mg/dL (70-100) Calcium 11.0 mg/dL H mg/dL (8.5-10.4) Phosphorus 3.4 mg/dL mg/dL (2.5-4.5) Total Bilirubin 0.5 mg/dL mg/dL (0.1-1.4) Conjugated Bilirubin 0.2 mg/dL mg/dL (0.0-0.5) Unconjugated Bilirubin 0.3 mg/dL mg/dL (0.0-1.1) AST 26 IU/L IU/L (14-46) ALT 22 IU/L IU/L (9-52) Alkaline Phosphatase 40 IU/L IU/L (38-126) Total Protein 6.6 g/dL g/dL (6.3-8.2) Albumin 3.8 g/dL g/dL (3.5-5.0) Lipase 440 IU/L H IU/L (23-300) Patient ABO/Rh O POSITIVE Antibody Screen NEGATIVE 09/24/18 09:45 WBC 9.37 10^3/uL 10^3/uL (3.80-9.50) RBC 2.75 10^6/uL L 10^6/uL (4.18-5.33) Hgb 9.7 g/dL L g/dL (12.6-16.3) Hct 29.2 % L % (38.0-47.0) MCV 106.2 fL H fL (81.5-99.8) MCH 35.3 pg H pg (27.9-34.1) MCHC 33.2 g/dL g/dL (32.4-36.7) RDW 14.8 % % (11.5-15.2) Plt Count 245 10^3/uL 10^3/uL (150-400) MPV 9.7 fL fL (8.7-11.7) Neut % (Auto) 73.9 % % (39.3-74.2) Lymph % (Auto) 15.6 % % (15.0-45.0) [place] % (Auto) 8.5 % % (4.5-13.0) Eos % (Auto) 0.9 % % (0.6-7.6) Baso % (Auto) 0.5 % % (0.3-1.7) Nucleat RBC Rel Count 0.0 % % (0.0-0.2) Absolute Neuts (auto) 6.92 10^3/uL H 10^3/uL (1.70-6.50) Absolute Lymphs (auto) 1.46 10^3/uL 10^3/uL (1.00-3.00) Absolute Monos (auto) 0.80 10^3/uL 10^3/uL (0.30-0.80) Absolute Eos (auto) 0.08 10^3/uL 10^3/uL (0.03-0.40) Absolute Basos (auto) 0.05 10^3/uL 10^3/uL (0.02-0.10) Absolute Nucleated RBC 0.00 10^3/uL 10^3/uL (0-0.01) Immature Gran % 0.6 % % (0.0-1.1) Immature Gran # 0.06 10^3/uL 10^3/uL (0.00-0.10) PT INR APTT Sodium Potassium Chloride Carbon Dioxide Anion Gap BUN Creatinine Estimated GFR Glucose Calcium Phosphorus Total Bilirubin Conjugated Bilirubin Unconjugated Bilirubin AST ALT Alkaline Phosphatase Total Protein Albumin Lipase Patient ABO/Rh Antibody Screen Medications Given: Tranexamic Acid 1,000 mg/ (Sodium Chloride) 510 mls @ 63.75 mls/hr IV ONCE ONE Stop: 09/24/18 18:10 Last Admin: 09/24/18 11:09 Dose: 510 mls Discontinued Medications Tranexamic Acid 1,000 mg/ (Sodium Chloride) 110 mls @ 660 mls/hr IV ONCE ONE Stop: 09/24/18 10:20 Last Admin: 09/24/18 10:20 Dose: 110 mls Pantoprazole Sodium (Protonix) 80 mg IVP EDNOW ONE Stop: 09/24/18 09:50 Last Admin: 09/24/18 10:09 Dose: 80 mg Departure - Departure Disposition: [facility] In[facility] Acute Clinical Impression: Upper GI bleed Condition: Fair Referrals: Nya Caballero MD [Primary Care Provider] - As per Instructions Report Scribed for: Timmy Hernandez Report Scribed by: Viviana Albright Date of Report: 09/24/18 Time of Report: 09:46
[2018-09-24] MEDS ORDERED: PANTOPRAZOLE SODIUM 40 MG VIAL IVP ONE (09:49)
[2018-09-24 09:52] LABS: PLATELET COUNT 245 10^3/uL (150-400)
[2018-09-24 10:02] LABS: INR 4.4 (0.83-1.16); PROTIME(PATIENT) 41.5 SEC (12.0-15.0)
[2018-09-24] MEDS ORDERED: TRANEXAMIC ACID 1,000 MG in NS 100 ML IV ONE (10:11)
[2018-09-24] MEDS ORDERED: TRANEXAMIC ACID 1,000 MG in NS 500 ML IV ONE (10:11)
[2018-09-24] MEDS ORDERED: traMADol 50 MG TAB PO PRN (10:45)
[2018-09-24] MEDS ORDERED: ONDANSETRON 4 MG/2 ML VIAL IVP PRN (13:01)
[2018-09-24] MEDS ORDERED: ONDANSETRON DISINTEGRATING 4 MG TAB PO PRN (13:01)
[2018-09-24] MEDS ORDERED: ACETAMINOPHEN 325 MG TAB PO PRN (13:01)
[2018-09-24] MEDS ORDERED: NS 1,000 ML IV SCH (13:15)
--- NOTE | 2018-09-24 14:24 | GHP ---
DATE OF ADMISSION: 09/24/2018 CHIEF COMPLAINT: Black stool x1 week, right upper quadrant pain. HISTORY OF PRESENT ILLNESS: The patient is a very sweet 88-year-old female, with a history of atrial fibrillation on Pradaxa. She was admitted last year with sepsis, secondary to E coli bacteremia who presented to the emergency room with weakness, right upper quadrant pain, and black stools. She describes initially suffering from constipation earlier in the week, and then, she has been having ongoing black stools. She has not noticed any bright red blood. She denies any emesis, fever, or chills. She describes feeling extremely weak. She has no appetite and has not been eating very well. She is also complaining of right upper quadrant pain that comes and goes. It does not radiate. It is a dull pain. I am able to reproduce the pain with pressing on her right upper quadrant. She denies any fever, chills. No changes in her vision. She denies any chest pain or shortness of breath. She denies any type of urinary symptoms. Overall, she is feeling quite comfortable during my interview and is not having any significant pain. PAST MEDICAL HISTORY: 1. Chronic atrial fibrillation. 2. Sepsis, secondary to E coli bacteremia in November of 2017. 3. Urinary tract infections. 4. Clostridium difficile colitis that occurred in November 2017. 5. Pulmonary hypertension. 6. Urinary incontinence. 7. Glaucoma. 8. History of chronic narcotic use for arthritis. 9. Peripheral neuropathy. 10. Hypertension. 11. Cognitive decline. 12. Esophageal stricture, status post dilation. PAST SURGICAL HISTORY: 1. Pacemaker placement. 2. Right hip replacement. 3. Right knee replacement. 4. Back surgery. 5. Hysterectomy. 6. Lumpectomy. FAMILY HISTORY: Reviewed and noncontributory. SOCIAL HISTORY: She lives at [facility] with her . They have been x62 years. She has 4 children. She does not smoke. She has a cocktail before dinner. 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 ALLERGIES: Sulfa causes hives. Penicillin causes anaphylactic shock. MEDICATIONS: Herbal supplements daily; vitamin B12 1000 mcg daily; vitamin C 500 mg daily; Remeron 15 mg p.o. q.h.s. p.r.n.; timolol drops 1 drop to her left eye twice daily; Lasix 40 mg p.o. Tuesday, Tuesday, Fridays; Lasix 20 mg p.o. Tuesday, Tuesday, , Saturdays; tramadol 50 mg p.o. q.6 hours p.r.n. ; Aldactone 25 mg daily; Pradaxa 150 mg p.o. b.i.d., memantine 20 mg p.o. q.h.s. ; losartan potassium 100 mg daily; Dilacor 240 mg daily; and Coreg CR 40 mg daily. REVIEW OF SYSTEMS: A 10-point review of system was performed, was negative other than pertinent positives in the HPI and past medical history. PHYSICAL EXAM: GENERAL: The patient is an 88-year-old female who does not appear to be in any type of acute distress and appears to be her stated years. VITAL SIGNS: Blood pressure is 104/40, heart rate is 62, respiratory rate is 12 , O2 sats on room air 95%, temperature is 36.3 Celsius. HEENT: Pupils are equal reactive. EOMs are intact. No conjunctival injection noted. Slightly hard of hearing. Oral airway is dry. NECK: Trachea is midline. CARDIOVASCULAR: She is in a regular rate and rhythm. No rubs or gallops noted. CHEST: Lungs normal respiratory effort. Clear without wheezing, rales , rhonchi. ABDOMEN: Soft. It is tender in the right upper quadrant without rebound or guarding. LYMPHATIC: She has no lymphadenopathy noted. SKIN: No rashes. She is pale. MUSCULOSKELETAL: Equal upper lower and upper extremity strength. PSYCHIATRIC: She is alert and oriented. Normal mood, affect. Normal judgment, insight, and normal memory. DATA REVIEWED: CBC shows a white blood cell count of 9.37, RBC of 2.75, hemoglobin 9.7, hematocrit of 29.2, MCV of 106.2. Coagulation: Pro time is 41.5, INR 4.4, PTT is 78.2. Chemistries: Sodium is 145, potassium 4.6, chloride of 110, CO2 of 21, anion gap of 14, BUN of 64, creatinine of 1.8, calcium is 11. Total bilirubin is 0.5, conjugated is 0.2, unconjugated is 0.3, AST 26, ALT is 22, lipase of 440. I reviewed the patient's care with Dr. Hernandez in the emergency room. ASSESSMENT/PLAN: 1. Upper gastrointestinal bleed: She was given tranexamic acid in the ER. Will place her on a proton pump inhibitor intravenous b.i.d. Will do serial H and H is we will hold her Pradaxa. I spoke with Dr. Lucio Vargas who will evaluate the patient later this evening. If her hemoglobin and hematocrit should drop quickly, he will see her sooner. 2. Right upper quadrant pain: She is quite tender with palpation to her right upper quadrant. Will get her gallbladder further evaluated. Liver enzymes are stable. 3. Acute renal insufficiency: Her creatinine is elevated compared to her baseline. I suspect it is because she has not been eating much. Will gently hydrate her with normal saline and recheck her in the morning. 4. Atrial fibrillation: Resume her beta-ruben and her calcium-channel ruben. Holding oral anticoagulation in the setting of a bleed. 5. Hypertension: She is slightly hypotensive. Will place parameters as when to give and when to hold her blood pressure medications. 6. History of severe Clostridium difficile colitis: Will avoid any type of antibiotics unless needed during this stay. 7. Glaucoma: Resumed her eye drops. 8. Deep venous thrombosis prophylaxis: Contraindicated due to a gastrointestinal bleed. Will order Athrombic pumps and ALDO hose. 9. Code status: Full. 10. Length of stay: She will be made observation status. This can be re- evaluated during her stay. /[id number]/[facility] MTDD
--- NOTE | 2018-09-24 17:47 | SOAPPROG ---
SOAP Progress Note Assessment/Plan: Assessment: Plan: 09/24/18 17:47 GI note See dictated consult. Npo after midnight. Will plan on EGD tomorrow. Objective: Vital Signs Temp Pulse Resp BP Pulse Ox 36.6 C 67 16 117/51 L 94 09/24/18 15:17 09/24/18 15:17 09/24/18 15:17 09/24/18 15:17 09/24/18 15:17 Laboratory Results 09/24/18 15:02 09/23/18 09/24/18 09/25/18 05:59 05:59 05:59 Intake Total 150 Output Total 200 Balance -50 PT 41.5 SEC (12.0-15.0) H 09/24/18 09:45 INR 4.40 (0.83-1.16) H 09/24/18 09:45 ICD10 Worksheet Patient Problems: Problems Problem Status Onset Pyelonephritis Acute Fever Acute CHF (congestive heart failure) Acute Elevated troponin Acute UTI (urinary tract infection) Acute Upper GI bleed Acute
[2018-09-24] MEDS: PANTOPRAZOLE SODIUM 40 MG VIAL IVP SCH (20:33)
[2018-09-24] MEDS: DORZOLAMIDE/TIMOLOL 10 ML OPHT.BTL LEFTEYE SCH (20:36)
[2018-09-24] MEDS: MEMANTINE HCL 28 MG PO SCH (20:36)
--- NOTE | 2018-09-25 04:03 | GCON ---
DATE OF CONSULTATION: 09/24/2018 CONSULTING PHYSICIAN: Connie Ruelas NP. REASON FOR CONSULTATION: Blood in stools. CHIEF COMPLAINT: Black tarry stools. HISTORY OF PRESENT ILLNESS: The patient is an 88-year-old female with history of chronic atrial fibrillation on Pradaxa, pulmonary hypertension, peripheral neuropathy, hypertension, esophageal stricture who presents to [facility] with complaints of black stools. The patient said for the last 1 week, she has had approximately 3-4 black bowel movements each day. She also has had complaints of an intermittent right upper quadrant pain. This pain can last hours is often exacerbated by eating with no alleviating factors. She denies any significant nonsteroidal anti-inflammatory use. She does complain of being weak. She denies any nausea, vomiting, dysphagia, or odynophagia. She also denies any bright red blood per rectum. She did have a prior upper endoscopy and colonoscopy done 2 years ago. She denies any chest pain or shortness of breath. I am being asked by Connie Ruelas NP, to evaluate the patient in regard to her right upper quadrant abdominal pain as well as blood in stools. PAST MEDICAL HISTORY: 1. Atrial fibrillation. 2. Pulmonary hypertension. 3. C. difficile colitis. 4. Urinary incontinence. 5. Glaucoma. 6. Chronic narcotic use. 7. Peripheral neuropathy. 8. Hypertension. 9. Esophageal stricture. PAST SURGICAL HISTORY: 1. Right hip replacement. 2. Right knee replacement. 3. Back surgery. 4. Hysterectomy. 5. Lumpectomy. 6. Pacemaker. FAMILY HISTORY: No history of colon cancer. SOCIAL HISTORY: Positive alcohol. No significant tobacco use. ALLERGIES: Sulfa, penicillin. MEDICATIONS: Herbal supplements, Timolol, Lasix, Aldactone, Pradaxa, amantadine , losartan, Dilacor, and Coreg. REVIEW OF SYSTEMS: A 14-point comprehensive review of systems was asked. Pertinent positives and negatives per HPI. PHYSICAL EXAM: VITAL SIGNS: Blood pressure 104/40, pulse 68, respiration rate 12, temperature 36.3. GENERAL: Awake, alert, oriented x3. No distress. HEENT : Anicteric. Moist mucosa. NECK: No JVD. CARDIOVASCULAR: Regular rate and rhythm. Positive S1, S2. No murmurs, rubs, or gallops appreciated. LUNGS: Clear to auscultation bilaterally without wheezes, rales, or rhonchi. ABDOMEN: Soft, minimal tenderness in right upper quadrant. No guarding, no rebound. Positive bowel sounds. EXTREMITIES: No cyanosis, clubbing, or edema. NEUROLOGIC : Cranial nerves 2 through 12 grossly intact. PSYCHIATRIC: Normal affect. LYMPH: There is no lymphadenopathy. SKIN: No rash. MUSCULOSKELETAL: No obvious joint effusions or deformities. BLOOD WORK: Hemoglobin 9.7, hematocrit 29.7. Sodium 145, BUN 64, creatinine 1.8. ASSESSMENT AND PLAN: 1. Black tarry stools- with right upper quadrant pain. On no nonsteroidal anti- inflammatory drugs. She is on Pradaxa. Etiology ? peptic ulcer disease versus other? At this time, I recommend to proceed with upper endoscopy. The risks, benefits, and alternatives of the procedure were discussed in detail with the patient. The risks of infection, bleeding, perforation, and sedation were discussed. Due to her pulmonary hypertension with chronic narcotic use, she is at increased risk of sedation, and will consult Anesthesiology for further support. 3. Acute renal insufficiency. 4. Atrial fibrillation. 5. Hypertension. 6. Pulmonary hypertension. 7. History of Clostridium difficile. Thank you very much for this consultation. /[id number]/MODL MTDD
[2018-09-25 04:52] LABS: PLATELET COUNT 209 10^3/uL (150-400)
[2018-09-25] MEDS: LOSARTAN POTASSIUM 50 MG TAB PO SCH (08:53)
[2018-09-25] MEDS: DILTIAZEM XR 240 MG CAP PO SCH (08:53)
[2018-09-25] MEDS: PANTOPRAZOLE SODIUM 40 MG VIAL IVP SCH ×2 (08:54→20:59)
[2018-09-25] MEDS: CARVEDILOL CR 40 MG CAP PO SCH (08:54)
[2018-09-25] MEDS: DORZOLAMIDE/TIMOLOL 10 ML OPHT.BTL LEFTEYE SCH ×2 (09:00→20:58)
[2018-09-25] MEDS ORDERED: Herbals/Supplements -Info Only PO SCH (09:00)
--- NOTE | 2018-09-25 10:03 | ASMTCASEMG ---
Living Arrangements What is your living Answers: With Spouse arrangement? Who do you live with? Type Of Residence What kind of residence do Answers: Apartment you live in? Discharge Plan Comments Coordination Status Comments Notes: Patient is an 88yo woman who lives with her at [facility] in independent living. Patient was admitted for an upper gastrointestinal bleed, right upper quadrant pain, acute renal insufficiency, AFIB, hypertension, deep venous thrombosis prophylaxis. Patient is currently OBS. D/C plan TBD. CM will follow. Date Signed: 09/25/2018 10:02 AM Electronically Signed By:Wendy Khan LCSW
--- NOTE | 2018-09-25 11:10 | PDANEPAE ---
ANE History of Present Illness EGD ANE Past Medical History - Cardiovascular History Hx Hypertension: Yes Hx Arrhythmias: Yes Hx Chest Pain: No Hx Coronary Artery / Peripheral Vascular Disease: Yes Hx CHF / Valvular Disease: Yes Hx Palpitations: Yes - Pulmonary History Hx COPD: No Hx Asthma/Reactive Airway Disease: No Hx Oxygen in Use at Home: Yes O2 in Use at Home (L/minute): 2 Hx Sleep Apnea: Yes Sleep Apnea Screening Result - Last Documented: Positive - Endocrine History Hx Diabetes: No Obesity: mild - Chronic Pain History Chronic Pain: Yes ANE Review of Systems Review of Systems: - Exercise capacity METS (RN): 3 METS ANE Patient History - Allergies Allergies/Adverse Reactions: Penicillins Allergy (Verified 09/24/18 10:33) Anaphylaxis Sulfa (Sulfonamide Antibiotics) Allergy (Verified 09/24/18 10:33) Rash - Home Medications Home Medications: Ascorbic Acid [Vitamin C 500 mg (*)] 500 mg PO DAILY 09/24/18 [Last Taken Unknown] Carvedilol Phosphate [Coreg Cr] 40 mg PO DAILY 09/24/18 [Last Taken 09/24/18] Cyanocobalamin [Vitamin B12 (*)] 1,000 mcg PO DAILY 09/24/18 [Last Taken Unknown ] Dabigatran Etexilate Mesyl [Pradaxa 150 MG (*)] 150 mg PO BID 09/24/18 [Last Taken 09/24/18 AM] Diltiazem Xr [Dilacor Xr] 240 mg PO DAILY 09/24/18 [Last Taken 09/24/18] Dorzolamide HCl/Timolol Maleat [Dorzolamide-Timolol Eye Drops] 1 drop LEFTEYE BID 09/24/18 [Last Taken 09/24/18 AM] Furosemide [Lasix 20 MG (*)] 20 mg PO SUTUTHSA 09/24/18 [Last Taken 09/24/18] Furosemide [Lasix 20 MG (*)] 40 mg PO MOWEFR 09/24/18 [Last Taken 09/22/18] Herbals/Supplements -Info Only 1 ea PO DAILY 09/24/18 [Last Taken Unknown] Losartan Potassium 100 mg PO DAILY 09/24/18 [Last Taken 09/24/18] Memantine HCl [Memantine HCl ER] 28 mg PO HS 09/24/18 [Last Taken 09/22/18] Mirtazapine [Remeron] 15 mg PO HS PRN 09/24/18 [Last Taken Unknown] Spironolactone [Aldactone 25 MG (*)] 25 mg PO DAILY 09/24/18 [Last Taken ] traMADol [Ultram 50 mg (*)] 50 mg PO Q6H PRN 09/24/18 [Last Taken Unknown] - NPO status NPO Status: no food or drink >8 hours NPO Since - Liquids (Date): 09/24/18 NPO Since - Liquids (Time): 20:00 NPO Since - Solids (Date): 09/25/18 NPO Since - Solids (Time): 00:00 - Anes Hx Anes Hx: no prior problems - Smoking Hx Smoking Status: Never smoked - Alcohol Use Alcohol Use: Rarely - Family Anes Hx Family Anes Hx: neg - N/A ANE Labs/Vital Signs - Labs Result Diagrams: 09/25/18 04:40 09/25/18 04:40 - Vital Signs Blood Pressure: 130/64 Heart Rate: 86 Respiratory Rate: 16 O2 Sat (%): 99 Height: 167.64 cm Weight: 79.379 kg ANE Physical Exam - Airway Neck exam: FROM Mallampati Score: Class 3 - Pulmonary Pulmonary: no respiratory distress - Cardiovascular Cardiovascular: irregularly irregular - ASA Status ASA Status: III ANE Anesthesia Plan Anesthesia Plan: general endotracheal anesthesia Total IV Anesthesia: Yes
[2018-09-25] MEDS ORDERED: PROPOFOL 200 MG/20 ML VIAL ONE ×2 (11:57)
[2018-09-25] MEDS ORDERED: LIDOCAINE 2% 5 ML SDV ONE (11:59)
[2018-09-25] MEDS ORDERED: NALOXONE HCL 0.4 MG/ML INJ IVP PRN (11:59)
--- NOTE | 2018-09-25 12:37 | GIREPORT ---
Formerly [facility] Surgical Services - Endoscopy Department Patient Name: Opal Johnson Procedure Date: 09/25/2018 12:04 PM Patient Type: Inpatient Attending MD/ ER Physician: Lucio Vargas MD Procedure: Upper GI endoscopy Indications: Iron deficiency anemia, Melena Patient Profile: 88 year old female presents for evaluatin of iron deficiency anemia and melena. Providers: Lucio Vargas MD Medicines: Monitored Anesthesia Care Complications: No immediate complications. Estimated blood loss: Minimal. Description of Procedure: After obtaining informed consent, the endoscope was passed under direct vision. Throughout the procedure, the patient's blood pressure, pulse, and oxygen saturations were monitored continuously. The Endoscope was intro duced through the mouth, and advanced to the second part of duodenum. [facility] GI endoscopy was accomplished without difficulty. The patient tolerated th e procedure well. Findings: The examined esophagus was normal. A large hiatal hernia was present. Patchy mildly erythematous mucosa was found in the gastric body and in the gastric antrum. Biopsies were taken with a cold forceps for histology. Two non-bleeding superficial duodenal ulcers were found in the second portion of the duodenum. The largest lesion was 5 mm in largest dimensi on. Estimated Blood Loss: Estimated blood loss was minimal. Post Op Diagnosis: - Normal esophagus. - Large hiatal hernia. - Erythematous mucosa in the gastric body and antrum. Biopsied. - Multiple non-bleeding duodenal ulcers. - Etiology? Does have small duodenal ulcers. Cause of symptoms. Recomme nd full dose PPI BID. No NSAIDs. Recommendation: - [facility]. - Advance diet as tolerated. - Await pathology results. - Full dose PPI BID - Thank you for allowing me to participate in the care of your patient. Attending Participation: I personally performed the entire procedure. Lucio Vargas MD Lucio Vargas MD 09/25/2018 12:37:07 PM This report has been signed electronicallyLucio Vargas MD Number of Addenda: 0 Note Initiated On: 09/25/2018 12:04 PM [email or web address]
--- NOTE | 2018-09-25 12:51 | POSTANESTH ---
Post Anesthetic Evaluation Cardiovascular Status: Similar to Pre-Op Cond Respiratory Status: Similar to Pre-op Cond. Level of Consciousness/Mental Status: Can Participate in Eval Pain Control: Adequate, Prn Tx Ordered Nausea/Vomiting Control: Adequate, Prn Tx Ordered Complications Possibly Related to Anesthesia: None Noted
--- NOTE | 2018-09-25 15:38 | HOSPPROG ---
Hospitalist Progress Note Assessment/Plan: UGIB- H/H and vitals remain stable. GI consulted who will perform EGD today. On a PPI gtt. GI requesting anesthesia for sedation during EGD. -PPI gtt -await EGD -Monitor H/H KASSIDY- creatinine still elevated but trending down. Continue IVF and monitor renal function in am Afib- rate appears well controlled. on bb and CCB. continue these. monitor on telemetry Abdominal pain- continues to have RUQ ab pain. LFTs reviewed and are normal, and US abdomen also WNL. Will reassess after EGD which may be causing referred pain. glaucoma- continue timolol HTN- on coreg, dilt, and losartan. continue here PPX- No heparin, xu hose Fluids-IVNS Lytes- WNL nutrition- adat Cor-full Dispo- Gi requesting anesthesia for EGD, Will change to inpatient as this is much higher risk and she will need to recover post anesthesia. awaiting EGD under anesthesia Objective: Vital Signs Temp Pulse Resp BP Pulse Ox 36.7 C 73 16 111/53 L 98 09/25/18 13:18 09/25/18 13:18 09/25/18 13:18 09/25/18 13:18 09/25/18 13:18 Laboratory Results 09/25/18 04:40 09/25/18 04:40 09/24/18 09/25/18 09/26/18 05:59 05:59 05:59 Intake Total 450 350 Output Total 600 0 Balance -150 350 PT 41.5 SEC (12.0-15.0) H 09/24/18 09:45 INR 4.40 (0.83-1.16) H 09/24/18 09:45 Physical exam- General- NAD HEENT- PERRLA, atraumatic normocephalic. MMM and acyanotic Lungs- CTAB CV- irregularly irregular. No JVS, no pedal edema extremities- no CCE or calf pain abdomen- abodmen soft, but TTP in RUQ, no guarding or rebound, no organomegaly. - No CVA tenderness Skin- no mottling, no rashes Psych- normal mood and affect Neuro- CN2-12 intact, no focal deficits MSK- Normal ROM and strength. ICD10 Worksheet Patient Problems: Problems Problem Status Onset Upper GI bleed Acute CHF (congestive heart failure) Acute Elevated troponin Acute Fever Acute Pyelonephritis Acute UTI (urinary tract infection) Acute
--- NOTE | 2018-09-25 16:59 | SOAPPROG ---
SOAP Progress Note Assessment/Plan: Assessment: Plan: 09/24/18 17:47 GI note See dictated consult. Npo after midnight. Will plan on EGD tomorrow. 09/25/18 16:56 GI note S/p EGD with small duodenal ulcers. Duodenal ulcers source of pain and anemia? Recommend PPI BID. Ok to advance diet. Needs office f/u in [address] Chamorro is taking over the service in the am. Please call if needed. GI will sign off. Thank you for the consultation! Objective: Vital Signs Temp Pulse Resp BP Pulse Ox 36.8 C 85 16 120/65 99 09/25/18 15:40 09/25/18 15:40 09/25/18 15:40 09/25/18 15:40 09/25/18 15:40 Laboratory Results 09/25/18 04:40 09/25/18 04:40 09/24/18 09/25/18 09/26/18 05:59 05:59 05:59 Intake Total 450 350 Output Total 600 300 Balance -150 50 PT 41.5 SEC (12.0-15.0) H 09/24/18 09:45 INR 4.40 (0.83-1.16) H 09/24/18 09:45 ICD10 Worksheet Patient Problems: Problems Problem Status Onset Pyelonephritis Acute Fever Acute CHF (congestive heart failure) Acute Elevated troponin Acute UTI (urinary tract infection) Acute Upper GI bleed Acute
[2018-09-25] MEDS: MEMANTINE HCL 28 MG PO SCH (20:59)
[2018-09-25] MEDS: MIRTAZAPINE 15 MG TAB PO PRN (22:03)
[2018-09-25] MEDS: PANTOPRAZOLE SODIUM 40 MG TAB PO SCH (22:07)
[2018-09-26] MEDS: LOSARTAN POTASSIUM 50 MG TAB PO SCH (08:13)
[2018-09-26] MEDS: DILTIAZEM XR 240 MG CAP PO SCH (08:13)
[2018-09-26] MEDS: CARVEDILOL CR 40 MG CAP PO SCH (08:13)
[2018-09-26] MEDS: PANTOPRAZOLE SODIUM 40 MG TAB PO SCH ×2 (08:14→20:22)
[2018-09-26] MEDS: DORZOLAMIDE/TIMOLOL 10 ML OPHT.BTL LEFTEYE SCH ×2 (08:15→20:22)
--- NOTE | 2018-09-26 10:30 | PDMN ---
Medical Necessity Medical necessity: MCG M180 UGIB: 88 yo w/ UGIB, initially OBS for workup but pt cont w/ abd pain and elevated creatinine, hypotension and tachypnea. GI consulted, egd performed. Dx w/ large hiatal hernia, multi duodenal ulcers. Awaiting bx results. Pt remains of IVF. Cont w/ serial H/H. Pt requires additional MN for ongoing monitoring and tx of the above. Meets IP [facility] criteria for UGIB w/ hemodynamic instability, ongoing IV fluid support. Hx chronic afib, sepsis Nov 2017, UTIs, CDiff 2017, pHTN, urinary incontinence, periph neuropathy, HTN, cognitive decline, esoph stricture, pacer placement hip/ knee replacements, back surg. Change to IP status 09/25/18@[id number] per order
[2018-09-26 10:41] LABS: PLATELET COUNT 206 10^3/uL (150-400)
--- NOTE | 2018-09-26 14:14 | HOSPPROG ---
Hospitalist Progress Note Assessment/Plan: UGIB- egd yesterday with small duodenal ulcers. Patient continues to have melenic stools and H/H down from yesterday. -PPI BID -Monitor H/H KASSIDY- creatinine downtrending Afib- rate appears well controlled. on bb and CCB. continue these. monitor on telemetry Abdominal pain- better today. No evidence of stone on imaging glaucoma- continue timolol HTN- on coreg, dilt, and losartan. continue here PPX- No heparin, xu hose Fluids-IVNS Lytes- WNL nutrition- adat Cor-full Dispo- inpatient. continues to have melenic stools and does not feel safe going home. Will dc home when stable. Objective: Vital Signs Temp Pulse Resp BP Pulse Ox 36.4 C 69 20 103/43 L 97 09/26/18 12:27 09/26/18 12:27 09/26/18 12:27 09/26/18 12:27 09/26/18 12:27 Laboratory Results 09/26/18 10:20 09/26/18 10:20 09/25/18 09/26/18 09/27/18 05:59 05:59 05:59 Intake Total 500 Output Total 600 300 Balance -100 -300 PT 41.5 SEC (12.0-15.0) H 09/24/18 09:45 INR 4.40 (0.83-1.16) H 09/24/18 09:45 - Physical Exam Constitutional: no apparent distress, appears nourished, not in pain Eyes: PERRL, anicteric sclera, EOMI Ears, Nose, Mouth, Throat: moist mucous membranes, hearing normal, ears appear normal, no oral mucosal ulcers Cardiovascular: regular rate and rhythym, no murmur, rub, or gallop Respiratory: no respiratory distress, no rales or rhonchi, clear to auscultation Gastrointestinal: normoactive bowel sounds, soft, non-tender abdomen, no palpable masses Genitourinary: no bladder fullness, no bladder tenderness, no renal bruits Skin: no rashes or abrasions, no fluctuance, no induration Musculoskeletal: full muscle strength, no muscle tenderness, normal joint ROM Neurologic: AAOx3, sensation intact bilaterally Psychiatric: interacting appropriately, not anxious, not encephalopathic, thought process linear Lymph, Heme, Immunologic: no cervical LAD, no supraclavicular LAD ICD10 Worksheet Patient Problems: Problems Problem Status Onset Upper GI bleed Acute CHF (congestive heart failure) Acute Elevated troponin Acute Fever Acute Pyelonephritis Acute UTI (urinary tract infection) Acute
[2018-09-26] MEDS: MEMANTINE HCL 28 MG PO SCH (20:22)
[2018-09-26] MEDS: MIRTAZAPINE 15 MG TAB PO PRN (20:26)
--- NOTE | 2018-09-27 05:57 | CPEKG ---
Test Reason : OPEN Blood Pressure : / mmHG Vent. Rate : 061 BPM Atrial Rate : 000 BPM P-R Int : 250 ms QRS Dur : 139 ms QT Int : 447 ms P-R-T Axes : 000 085 -77 degrees QTc Int : 451 ms Ventricular-paced rhythm Confirmed by Jose Alicia ([id number]) on 09/27/2018 5:57:08 AM Referred By: Confirmed By:Jose Alicia
[2018-09-27 06:12] LABS: PLATELET COUNT 209 10^3/uL (150-400)
[2018-09-27] MEDS: LOSARTAN POTASSIUM 50 MG TAB PO SCH (09:12)
[2018-09-27] MEDS: DILTIAZEM XR 240 MG CAP PO SCH (09:12)
[2018-09-27] MEDS: CARVEDILOL CR 40 MG CAP PO SCH (09:12)
[2018-09-27] MEDS: PANTOPRAZOLE SODIUM 40 MG TAB PO SCH (09:13)
[2018-09-27] MEDS: DORZOLAMIDE/TIMOLOL 10 ML OPHT.BTL LEFTEYE SCH (09:13)
--- NOTE | 2018-09-27 09:39 | ASMTLACE ---
LACE Length of stay for Answers: 3 days current admission Acuity / Level of Answers: Yes Care: Did the patient have an inpatient admission? Comorbidities - select Answers: Opioid dependence all that apply / Chronic pain Other Notes: Pacemaker; AFib; HTN # of Emergency department Answers: 1-2 visits in the last 6 months Score: 12 Date Signed: 09/27/2018 09:39 AM Electronically Signed By:ROLAND Sanchez
--- NOTE | 2018-09-27 09:39 | ASMTCMCOM ---
CM Note CM Note Notes: CM met w/ pt for dispo planning. Therapies are recommending HC. Pt receives 2 hrs of unskilled care every am to assist w/ ADLs. Pt is not interested in HC at this time. Pt resides at [facility]. Pt reports that if she needs extra assistance [facility] is able to assist and order HC. CM available for changes. Plan: Independent Date Signed: 09/27/2018 09:38 AM Electronically Signed By:ROLAND Sanchez
--- NOTE | 2018-09-27 11:58 | PDIAF ---
- Diagnosis Code Status: Full Code - Medication Management Discharge Medications: electronically signed and located in the Home Medication List. - Orders Services needed: Physical Therapy, Occupational Therapy Isolation Type: None Diet Recommendation: no restrictions on diet Diet Texture: Regular Texture Diet Additional Instructions: Follow up with GI in two weeks. Resume your home medications. Any further bleeding and you should return to the ER. - Labs/Radiology CBC w/diff Date: 09/28/18 - Follow Up Care Current Providers and Referrals: Nya Caballero MD [Primary Care Provider] - As per Instructions
[2018-09-27 12:14] VITALS: BP 124/57
--- NOTE | 2018-09-27 13:18 | ASMTCMCOM ---
CM Note CM Note Notes: Change of plans. Pt is being discharged to [facility]. Pts is having a dental procedure tomorrow. DC orders sent to [facility]. Pts will be transporting pt back. COLTON Mayen will call to give report. CM available for changes. Plan: [facility] Date Signed: 09/27/2018 01:18 PM Electronically Signed By:ROLAND Sanchez
--- NOTE | 2018-09-27 13:19 | ASDISCHSUM ---
Discharge Information Plan Status:SNF Medically Cleared to Leave:09/26/2018 Discharge Date:09/26/2018 CM D/C Disposition: ADT D/C Disposition:[facility] Facility Projected Discharge Date:09/27/2018 11:00 AM Transportation at D/C: Discharge Delay Reason: Follow-Up Date:09/27/2018 11:00 AM Discharge Slot: Final Diagnosis: Placement Information Referral Type:*Assisted/SNF Referral ID:[id number] Provider Name:[facility] Address 1:[address] Address 2: City:[place] Selection Factors: State:[place] Patient Contact Information Contact Name:LEILA Relationship:Mack Address:[address] Work Phone: [facility]:[place] Alternate Phone: State/Zip Code:[place] [address] Email: Financial Information Financial Class:Medicare Primary Plan Desc:MEDICARE INPATIENT Primary Plan Number:[id number] Secondary Plan Desc:[facility] POS Secondary Plan Number:[id number] Assessment Information LACE LACE Length of stay for Answers: 3 days current admission Acuity / Level of Answers: Yes Care: Did the patient have an inpatient admission? Comorbidities - select Answers: Opioid dependence all that apply / Chronic pain Other Notes: Pacemaker; AFib; HTN # of Emergency department Answers: 1-2 visits in the last 6 months Score: 12 Date Signed: 09/27/2018 09:39 AM Electronically Signed By:ROLAND Sanchez [facility] Initial CM Assessment Living Arrangements What is your living Answers: With Spouse arrangement? Who do you live with? Type Of Residence What kind of residence do Answers: Apartment you live in? Discharge Plan Comments Coordination Status Comments Notes: Patient is an 88yo woman who lives with her at [facility] in independent living. Patient was admitted for an upper gastrointestinal bleed, right upper quadrant pain, acute renal insufficiency, AFIB, hypertension, deep venous thrombosis prophylaxis. Patient is currently OBS. D/C plan TBD. CM will follow. Date Signed: 09/25/2018 10:02 AM Electronically Signed By:Wendy Khan LCSW [facility] CM Progress Note CM Note CM Note Notes: CM met w/ pt for dispo planning. Therapies are recommending HC. Pt receives 2 hrs of unskilled care every am to assist w/ ADLs. Pt is not interested in HC at this time. Pt resides at [facility]. Pt reports that if she needs extra assistance [facility] is able to assist and order HC. CM available for changes. Plan: Independent Date Signed: 09/27/2018 09:38 AM Electronically Signed By:ROLAND Sanchez [facility] CM Progress Note CM Note CM Note Notes: Change of plans. Pt is being discharged to [facility]. Pts is having a dental procedure tomorrow. DC orders sent to [facility]. Pts will be transporting pt back. Tiarra, RN will call to give report. CM available for changes. Plan: [facility] Date Signed: 09/27/2018 01:18 PM Electronically Signed By:ROLAND Sanchez Intervention Information Intervention Type:*Incorrect Registration Date of Service:09/24/2018 03:26 PM Patient Type:Inpatient Staff Member:Dionna Bernard Hours: Discipline: Severity: Comment: Intervention Type:*IM-Signed Date of Service:09/25/2018 01:33 PM Patient Type:Observation Staff Member:Michaelle Shah Hours: Discipline: Severity: Comment:
--- NOTE | 2018-09-27 21:24 | PDDCSUM ---
Discharge Summary Discharge Summary: 88 year old female with pmh of afib on pradaxa who presented to the ER with complaints of black tarry stools. she was started on a PPI gtt and GI was consulted. GI performed an EGD who found small non bleeding duodenal ulcers. patients H/H stablilized and she did not require transfusion. she was started on PO PPI bid, per gi recommendations. she was discharged in good condition to snfwith recommendation to follow up with her pcp in one week. Gen- NAD HEENT- perrla, mmm pink and acyanotic, head atraumatic and normocephalic Lungs- CTABL CV- irreguarlly irregular, No MRG, no JVD abd- No guarding or rebound, no organomegaly, positive BS - no CVA tenderness Ext- No CCE or calf pain Psych- appropriate mood and affect Neuro- CN2-12 intact, no focal deficits Skin- no rashes or echymoses.
== END 2018-09-27 13:55 | DRG 378 ==
LOC: INTOOBSV 10:16 → F3E 11:59 → OBSVTOIN 09-25 19:05
PROVIDERS: ADMIT Internal Medicine; ATTEND Internal Medicine
PROC: 0DB68ZX Excision of Stomach, Via Natural or Artificial Opening Endoscopic, Diagnostic (ICD-10-PCS; principal; 2018-09-25 11:00)
DX: K26.4 Chronic or unspecified duodenal ulcer with hemorrhage (principal); K44.9 Diaphragmatic hernia without obstruction or gangrene; N17.9 Acute kidney failure, unspecified; D50.9 Iron deficiency anemia, unspecified; I48.2 Chronic atrial fibrillation; I27.20 Pulmonary hypertension, unspecified; I10 Essential (primary) hypertension; H40.9 Unspecified glaucoma; G63 Polyneuropathy in diseases classified elsewhere; Z79.01 Long term (current) use of anticoagulants; Z87.440 Personal history of urinary (tract) infections; Z96.641 Presence of right artificial hip joint; Z96.651 Presence of right artificial knee joint; Z95.0 Presence of cardiac pacemaker
CPT/HCPCS: 96374; 97116-GP; 97162-GP; 97166-GO; 97535-GO; G0378; G8978-GP-CK; G8979-GP-CI; G8987-GO-CJ; G8988-GO-CI; J2704

== ENCOUNTER 2018-10-27 13:31 | Inpatient (IN) | payer OTHER ==
--- NOTE | 2018-10-27 15:08 | EDPHY ---
H & P Time Seen by Provider: 10/27/18 15:07 HPI/ROS: CHIEF COMPLAINT: Worsening weakness HISTORY OF PRESENT ILLNESS: Admitted for gastrointestinal bleed in September, and patient describes worsening symptoms since discharge. Now she is so weak over the last day and a half that she needs help even to get out of a chair and she really can't walk anymore. None of this is focal. Not associated with headache or fever or chills. She just feels very tired and says she has no associated appetite. She says she feels sleepy. Symptoms moderate to severe at this time. Not associated with any rectal bleeding or repeated GI symptoms. REVIEW OF SYSTEMS: Eye: no change in vision ENT: no sore throat Cardiac: no chest pain or syncope Pulmonary: no cough or SOB Abdomen: no vomiting, diarrhea, abdominal pain Musculoskeletal: no back pain or neck pain Skin: no rash Neuro: no headache Constitutional: no fever : no urinary symptoms A comprehensive 10 point review of systems is otherwise negative aside from elements mentioned in the history of present illness. PAST MEDICAL HISTORY: Includes GI bleed, pacemaker, atrial fibrillation, hypertension, glaucoma Social history: , lives independently, on Pradaxa here with . General Appearance: Alert and conversant, cooperative. Eyes: No scleral icterus. ENT, Mouth: Dry mucous membranes. Respiratory: Normal respiratory effort, breath sounds equal, lungs are clear to auscultation. Cardiovascular: Regular rate and rhythm. Gastrointestinal: Abdomen is soft and non tender. Neurological: Alert, face symmetric, normal motor and sensory in extremities. Can lift each leg independently off the bed. Good calender operator helper strength bilaterally, fluent speech. Skin: Warm and dry, no rashes. Musculoskeletal: No peripheral edema. Psychiatric: Not agitated. Emergency Department course/MDM: Patient looks clinically mildly dehydrated, is quite weak and will need to be admitted as she can't really walk or stand anymore. I think it is unlikely that she has recurrent GI bleed, stroke, hypertensive emergency, acute infection. Smoking Status: Never smoked Constitutional: Initial Vital Signs Temperature (C) 37 C 10/27/18 13:38 Heart Rate 92 10/27/18 13:38 Respiratory Rate 16 10/27/18 13:38 Blood Pressure 119/63 10/27/18 13:38 O2 Sat (%) 95 10/27/18 13:38 O2 Delivery Mode Room Air Allergies/Adverse Reactions: Penicillins Allergy (Verified 10/27/18 13:36) Anaphylaxis Sulfa (Sulfonamide Antibiotics) Allergy (Verified 10/27/18 13:36) Rash Home Medications: Medication Instructions Recorded Ascorbic Acid [Vitamin C 500 mg 500 mg PO DAILY 09/24/18 (*)] Carvedilol Phosphate [Coreg Cr] 40 mg PO DAILY 09/24/18 Cyanocobalamin [Vitamin B12 (*)] 1,000 mcg PO DAILY 09/24/18 Dabigatran Etexilate Mesyl 150 mg PO BID 09/24/18 [Pradaxa 150 MG (*)] Diltiazem Xr [Dilacor Xr] 240 mg PO DAILY 09/24/18 Dorzolamide HCl/Timolol Maleat 1 drop LEFTEYE BID 09/24/18 [Dorzolamide-Timolol Eye Drops] Furosemide [Lasix 20 MG (*)] 20 mg PO DAILY 09/24/18 Herbals/Supplements -Info Only 1 ea PO DAILY 09/24/18 Losartan Potassium 100 mg PO DAILY 09/24/18 Memantine HCl [Memantine HCl ER] 28 mg PO HS 09/24/18 Mirtazapine [Remeron] 15 mg PO HS PRN 09/24/18 Spironolactone [Aldactone 25 MG 25 mg PO DAILY 09/24/18 (*)] traMADol [Ultram 50 mg (*)] 50 mg PO Q6H PRN 09/24/18 Pantoprazole Sodium [Protonix 40mg 40 mg PO BID #60 tab 09/27/18 (*)] Medical Decision Making - Diagnostics EKG Interpretation: 12-lead EKG interpreted by me; official reading is in computer system. My interpretation is ventricular paced rhythm rate 72. Imaging Results: Imaging Impressions Chest X-Ray 10/27/18 15:22 Impression: Cardiomegaly and congestive heart failure. Imaging: Discussed imaging studies w/ train caller Radiologist Differential Diagnosis: Differential diagnosis considered for weakness including but not limited to electrolyte abnormality, depression, anxiety, CVA, spinal cord abnormality, and infectious causes. Consult/Admit Bed Type: [place] [id number] - Data Points Laboratory Results: Laboratory Results 10/27/18 15:05 10/27/18 15:05 10/27/18 10/27/18 10/27/18 15:05 15:05 12:10 WBC 7.58 10^3/uL 10^3/uL (3.80-9.50) RBC 2.90 10^6/uL L 10^6/uL (4.18-5.33) Hgb 9.4 g/dL L g/dL (12.6-16.3) Hct 30.2 % L % 30.0 % L % (38.0-47.0) (38.0-47.0) MCV 104.1 fL H fL (81.5-99.8) MCH 32.4 pg pg (27.9-34.1) MCHC 31.1 g/dL L g/dL (32.4-36.7) RDW 14.6 % % (11.5-15.2) Plt Count 271 10^3/uL 10^3/uL (150-400) MPV 10.2 fL fL (8.7-11.7) Neut % (Auto) 69.4 % % (39.3-74.2) Lymph % (Auto) 18.1 % % (15.0-45.0) [place] % (Auto) 9.4 % % (4.5-13.0) Eos % (Auto) 1.7 % % (0.6-7.6) Baso % (Auto) 0.9 % % (0.3-1.7) Nucleat RBC Rel Count 0.0 % % (0.0-0.2) Absolute Neuts (auto) 5.26 10^3/uL 10^3/uL (1.70-6.50) Absolute Lymphs (auto) 1.37 10^3/uL 10^3/uL (1.00-3.00) Absolute Monos (auto) 0.71 10^3/uL 10^3/uL (0.30-0.80) Absolute Eos (auto) 0.13 10^3/uL 10^3/uL (0.03-0.40) Absolute Basos (auto) 0.07 10^3/uL 10^3/uL (0.02-0.10) Absolute Nucleated RBC 0.00 10^3/uL 10^3/uL (0-0.01) Immature Gran % 0.5 % % (0.0-1.1) Immature Gran # 0.04 10^3/uL 10^3/uL (0.00-0.10) ESR 35 MM/HR H MM/HR (0-30) Sodium 145 mEq/L mEq/L (135-145) Potassium 5.1 mEq/L mEq/L (3.5-5.2) Chloride 115 mEq/L H mEq/L (97-110) Carbon Dioxide 21 mEq/l L mEq/l (22-31) Anion Gap 9 mEq/L mEq/L (6-14) BUN 44 mg/dL H mg/dL (7-23) Creatinine 1.6 mg/dL H mg/dL (0.6-1.0) Estimated GFR 30 Glucose 105 mg/dL H mg/dL (70-100) Calcium 10.7 mg/dL H mg/dL (8.5-10.4) Phosphorus 3.6 mg/dL mg/dL (2.5-4.5) C-Reactive Protein Vitamin B12 Procalcitonin TSH 10/27/18 12:10 WBC RBC Hgb Hct MCV MCH MCHC RDW Plt Count MPV Neut % (Auto) Lymph % (Auto) [place] % (Auto) Eos % (Auto) Baso % (Auto) Nucleat RBC Rel Count Absolute Neuts (auto) Absolute Lymphs (auto) Absolute Monos (auto) Absolute Eos (auto) Absolute Basos (auto) Absolute Nucleated RBC Immature Gran % Immature Gran # ESR Sodium Potassium Chloride Carbon Dioxide Anion Gap BUN Creatinine Estimated GFR Glucose Calcium Phosphorus C-Reactive Protein < 5.0 mg/L mg/L (<10.0) Vitamin B12 678 pg/mL pg/mL (239-931) Procalcitonin 0.07 ng/mL ng/mL (0.02-0.10) TSH 1.850 uIU/mL uIU/mL (0.465-4.680) Medications Given: Dabigatran (Pradaxa) 150 mg PO BID MINO Stop: 04/25/19 20:59 Last Admin: 10/27/18 20:11 Dose: 150 mg Dorzolamide/Timolol (Cosopt) 1 drops LEFTEYE BID MINO Stop: 04/25/19 20:59 Last Admin: 10/27/18 20:12 Dose: 1 drop Sodium Chloride (Ns) 1,000 mls @ 75 mls/hr IV CONT MINO Stop: 10/28/18 07:49 Last Admin: 10/27/18 20:04 Dose: 1,000 mls Miscellaneous Medication (Memantine Hcl [Memantine Hcl Er]) 28 mg PO HS MINO Stop: 04/25/19 20:59 Last Admin: 10/27/18 20:10 Dose: Not Given Pantoprazole Sodium (Protonix) 40 mg PO BID MINO Stop: 04/25/19 20:59 Last Admin: 10/27/18 20:11 Dose: 40 mg Discontinued Medications Sodium Chloride (Ns) 1,000 mls @ 0 mls/hr IV EDNOW ONE; Wide Open PRN Reason: Protocol Stop: 10/27/18 15:23 Last Admin: 10/27/18 15:37 Dose: 1,000 mls Departure - Departure Disposition: [facility] Acute Clinical Impression: Weakness Condition: Fair
[2018-10-27 15:17] LABS: PLATELET COUNT 271 10^3/uL (150-400)
[2018-10-27] MEDS ORDERED: NS 1,000 ML IV ONE (15:22)
--- NOTE | 2018-10-27 15:25 | CPEKG ---
Test Reason : OPEN Blood Pressure : / mmHG Vent. Rate : 072 BPM Atrial Rate : 000 BPM P-R Int : 140 ms QRS Dur : 147 ms QT Int : 403 ms P-R-T Axes : 134 087 -64 degrees QTc Int : 442 ms Ventricular-paced rhythm Confirmed by Luis Cox ([id number]) on 10/27/2018 3:24:38 PM Referred By: Confirmed By:Luis Cox
[2018-10-27] MEDS ORDERED: ONDANSETRON 4 MG/2 ML VIAL IVP PRN (18:18)
[2018-10-27] MEDS ORDERED: ONDANSETRON DISINTEGRATING 4 MG TAB PO PRN (18:18)
[2018-10-27] MEDS ORDERED: ACETAMINOPHEN 325 MG TAB PO PRN (18:18)
[2018-10-27] MEDS ORDERED: NS 1,000 ML IV SCH (18:30)
[2018-10-27] MEDS ORDERED: traMADol 50 MG TAB PO PRN (18:46)
--- NOTE | 2018-10-27 19:09 | HOSPPROG ---
Hospitalist Progress Note Assessment/Plan: Pt seen and examined in conjunction with CREATIVE DEVELOPER. Progressive weakness since her GI bleed in September. She says she has been waking up in the am and then going to her chair and remaining there all day until bed time. afebrile. no cp or sob. no n/v/d. good oral intake. no focal weakness. no increased leg swelling. #Generalized Weakness #CHF #Afib, Chronic AC #HTN #KASSIDY #Bacteriuria Plan: Agree with CREATIVE DEVELOPER's A/P per her H&P volume looks optimized. BP is stable and no signs of orthostatics. She is on a number agents which have been continued. Will check orthostatics Low suspicion for infection. Given profound weakness will check UCx. no abx for now The etiology of her weakness is likely due to being stationary most of the day. She will need rehab. PT to follow She is on AC and this will be continued for now but likely she is a high fall risk and may benefit from stopping this and transitioning to an Aspirin only repeat BMP in a.m. , s/p 1 L NS Subjective: no cp or sob. no n/v Objective: Vital Signs Temp Pulse Resp BP Pulse Ox 36.6 C 78 18 141/85 H 97 10/27/18 18:02 10/27/18 18:02 10/27/18 18:02 10/27/18 18:02 10/27/18 18:02 10/26/18 10/27/18 10/28/18 05:59 05:59 05:59 Intake Total 700 Balance 700 - Physical Exam Constitutional: no apparent distress Eyes: PERRL Ears, Nose, Mouth, Throat: moist mucous membranes, hearing normal Cardiovascular: regular rate and rhythym, No edema Respiratory: no respiratory distress, no rales or rhonchi, reduced air movement Gastrointestinal: normoactive bowel sounds Skin: warm Musculoskeletal: generalized weakness Neurologic: AAOx3 Psychiatric: interacting appropriately, not anxious, not encephalopathic ICD10 Worksheet Patient Problems: Problems Problem Status Onset CHF (congestive heart failure) Acute Elevated troponin Acute Fever Acute Pyelonephritis Acute UTI (urinary tract infection) Acute Upper GI bleed Acute
--- NOTE | 2018-10-27 19:39 | PDGENHP ---
History and Physical - Chief Complaint Generalized weakness - History of Present Illness This is an 88 y/o female with history of atrial fibrillation and pacemaker presenting with generalized weakness. She was admitted in September for a gastrointestinal bleed and since that time, she feels like she has progressively worsened as far as weakness, lack of appetite, and poor oral intake. She chronically wear 2LNC of supplemental oxygen at home and lives a sedentary lifestyle. She has not needed to increase her oxygen at home. She has obstructive sleep apnea and wears a CPAP at bedtime. She has normal BMs and is incontinent of urine however this is not new to her. 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 Denies chest pains, nausea, vomiting, fevers, chills. EKG reveals ventricular paced and CXR reveals cardiomegaly and mild congestive heart failure, no acute processes. Past Medical/Surgical History 1. Atrial Fibrillation (On Pradaxa) 2. Pacemaker (2010) 3. Tricuspid valve insufficiency 4. Pulmonary Hypertension 5. Hypertension 6. Glaucoma 7. STEVEN with CPAP 8. Right hip replacement 9. Right knee replacement 10. Back surgery 11. Lumpectomy Social 1. 2. Lives at [facility] 3. Former smoke. Denies illicit drug use. Drinks 2-3 alcohol beverages/day. Either wine or gin and tonic. History Information - Allergies/Home Medication List Allergies/Adverse Reactions: Penicillins Allergy (Verified 10/27/18 13:36) Anaphylaxis Sulfa (Sulfonamide Antibiotics) Allergy (Verified 10/27/18 13:36) Rash Home Medications: Ascorbic Acid [Vitamin C 500 mg (*)] 500 mg PO DAILY 09/24/18 [Last Taken Unknown] Carvedilol Phosphate [Coreg Cr] 40 mg PO DAILY 09/24/18 [Last Taken 10/27/18] Cyanocobalamin [Vitamin B12 (*)] 1,000 mcg PO DAILY 09/24/18 [Last Taken Unknown ] Dabigatran Etexilate Mesyl [Pradaxa 150 MG (*)] 150 mg PO BID 09/24/18 [Last Taken 10/27/18 09:00] Diltiazem Xr [Dilacor Xr] 240 mg PO DAILY 09/24/18 [Last Taken 10/27/18] Dorzolamide HCl/Timolol Maleat [Dorzolamide-Timolol Eye Drops] 1 drop LEFTEYE BID 09/24/18 [Last Taken 09/24/18 AM] Furosemide [Lasix 20 MG (*)] 20 mg PO DAILY 09/24/18 [Last Taken 09/24/18] Herbals/Supplements -Info Only 1 ea PO DAILY 09/24/18 [Last Taken Unknown] Losartan Potassium 100 mg PO DAILY 09/24/18 [Last Taken 09/24/18] Memantine HCl [Memantine HCl ER] 28 mg PO HS 09/24/18 [Last Taken 09/22/18] Mirtazapine [Remeron] 15 mg PO HS PRN 09/24/18 [Last Taken Unknown] Spironolactone [Aldactone 25 MG (*)] 25 mg PO DAILY 09/24/18 [Last Taken ] traMADol [Ultram 50 mg (*)] 50 mg PO Q6H PRN 09/24/18 [Last Taken Unknown] I have personally reviewed and updated: family history, medical history, social history, surgical history Past Medical History: See HPI list - Past Medical History atrial fibrillation - Surgical History Additional surgical history: See HPI list - Family History Positive for: cancer Additional family history: [place]. CVA. HTN - Social History Smoking Status: Never smoked Alcohol Use: Occasionally Drug Use: None Review of Systems Review of Systems: ROS: 10pt was reviewed & negative except for what was stated in HPI & below Constitutional: Reports: weakness, other (Lack of appetite) EENMT: Reports: no symptoms Cardiac: Reports: no symptoms Respiratory: Reports: no symptoms Gastrointestinal: Reports: no symptoms Genitourinary: Reports: incontinence (Urine, chronic) Muscolosketal: Reports: no symptoms Skin: Reports: no symptoms Neurological: Reports: paresthesia (Chronic, BLE), weakness (New onset, progressively worsening) Hematologic/Lymphatic: Reports: no symptoms Immunologic/Allergy: Reports: other (See allergy list) Physical Exam Physical Exam: Lab data and imaging reviewed Temp Pulse Resp BP Pulse Ox 36.6 C 78 18 141/85 H 97 10/27/18 18:02 10/27/18 18:02 10/27/18 18:02 10/27/18 18:02 10/27/18 18:02 O2 (L/minute) 2 Constitutional: no apparent distress, appears nourished, not in pain Eyes: PERRL, anicteric sclera, EOMI Ears, Nose, Mouth, Throat: hearing normal, ears appear normal, no oral mucosal ulcers, dry mucous membranes Cardiovascular: no murmur, rub, or gallop, irregularly irregular, edema Peripheral Pulses: 2+: dorsalis-pedis (R) (Radial 2+), dorsalis-pedis (L) ( Radial 2+) Respiratory: no respiratory distress, no rales or rhonchi, clear to auscultation Gastrointestinal: normoactive bowel sounds, soft, non-tender abdomen, no palpable masses Genitourinary: no bladder fullness, no bladder tenderness Skin: warm, normal color, no rashes or abrasions, no fluctuance, no induration, No mottled Musculoskeletal: no muscle tenderness, normal joint ROM, no joint effusions, generalized weakness (BUE motor strength 5/5; BLE motor strength 4/5) Neurologic: AAOx3, sensation intact bilaterally, CN II-XII Intact Psychiatric: interacting appropriately, not anxious, not encephalopathic, thought process linear Lymph, Heme, Immunologic: no cervical LAD, no supraclavicular LAD Lab Data & Imaging Review 10/27/18 15:05 10/27/18 15:05 WBC 7.58 10^3/uL (3.80-9.50) 10/27/18 15:05 RBC 2.90 10^6/uL (4.18-5.33) L 10/27/18 15:05 Hgb 9.4 g/dL (12.6-16.3) L 10/27/18 15:05 Hct 30.2 % (38.0-47.0) L 10/27/18 15:05 MCV 104.1 fL (81.5-99.8) H 10/27/18 15:05 MCH 32.4 pg (27.9-34.1) 10/27/18 15:05 MCHC 31.1 g/dL (32.4-36.7) L 10/27/18 15:05 RDW 14.6 % (11.5-15.2) 10/27/18 15:05 Plt Count 271 10^3/uL (150-400) 10/27/18 15:05 MPV 10.2 fL (8.7-11.7) 10/27/18 15:05 Neut % (Auto) 69.4 % (39.3-74.2) 10/27/18 15:05 Lymph % (Auto) 18.1 % (15.0-45.0) 10/27/18 15:05 [place] % (Auto) 9.4 % (4.5-13.0) 10/27/18 15:05 Eos % (Auto) 1.7 % (0.6-7.6) 10/27/18 15:05 Baso % (Auto) 0.9 % (0.3-1.7) 10/27/18 15:05 Nucleat RBC Rel Count 0.0 % (0.0-0.2) 10/27/18 15:05 Absolute Neuts (auto) 5.26 10^3/uL (1.70-6.50) 10/27/18 15:05 Absolute Lymphs (auto) 1.37 10^3/uL (1.00-3.00) 10/27/18 15:05 Absolute Monos (auto) 0.71 10^3/uL (0.30-0.80) 10/27/18 15:05 Absolute Eos (auto) 0.13 10^3/uL (0.03-0.40) 10/27/18 15:05 Absolute Basos (auto) 0.07 10^3/uL (0.02-0.10) 10/27/18 15:05 Absolute Nucleated RBC 0.00 10^3/uL (0-0.01) 10/27/18 15:05 Immature Gran % 0.5 % (0.0-1.1) 10/27/18 15:05 Immature Gran # 0.04 10^3/uL (0.00-0.10) 10/27/18 15:05 Sodium 145 mEq/L (135-145) 10/27/18 15:05 Potassium 5.1 mEq/L (3.5-5.2) 10/27/18 15:05 Chloride 115 mEq/L (97-110) H 10/27/18 15:05 Carbon Dioxide 21 mEq/l (22-31) L 10/27/18 15:05 Anion Gap 9 mEq/L (6-14) 10/27/18 15:05 BUN 44 mg/dL (7-23) H 10/27/18 15:05 Creatinine 1.6 mg/dL (0.6-1.0) H 10/27/18 15:05 Estimated GFR 30 10/27/18 15:05 Glucose 105 mg/dL (70-100) H 10/27/18 15:05 Calcium 10.7 mg/dL (8.5-10.4) H 10/27/18 15:05 Phosphorus 3.6 mg/dL (2.5-4.5) 10/27/18 15:05 Urine Color YELLOW 10/27/18 16:20 Urine Appearance CLEAR 10/27/18 16:20 Urine pH 5.0 (5.0-7.5) 10/27/18 16:20 Ur Specific [place] 1.011 (1.002-1.030) 10/27/18 16:20 Urine Protein NEGATIVE (NEGATIVE) 10/27/18 16:20 Urine Ketones NEGATIVE (NEGATIVE) 10/27/18 16:20 Urine Blood NEGATIVE (NEGATIVE) 10/27/18 16:20 Urine Nitrate POSITIVE (NEGATIVE) H 10/27/18 16:20 Urine Bilirubin NEGATIVE (NEGATIVE) 10/27/18 16:20 Urine Urobilinogen NEGATIVE EU (0.2-1.0) 10/27/18 16:20 Ur Leukocyte Esterase NEGATIVE (NEGATIVE) 10/27/18 16:20 Urine RBC 1-3 /hpf (0-3) 10/27/18 16:20 Urine WBC 10-15 /hpf (0-3) H 10/27/18 16:20 Ur Epithelial Cells TRACE /lpf (NONE-1+) 10/27/18 16:20 Urine Bacteria 1+ /hpf (NONE SEEN) H 10/27/18 16:20 Hyaline Casts 5-15 /lpf (0-1) 10/27/18 16:20 Urine Mucus TRACE /lpf (NONE-1+) 10/27/18 16:20 Urine Glucose NEGATIVE (NEGATIVE) 10/27/18 16:20 Assessment & Plan Plan: This is an 88 y/o female with history of atrial fibrillation and pacemaker presenting with progressively worsening of generalized body weakness. She lives a mostly sedentary lifestyle by ambulating with her walk but only to either go to bed, the restroom, or for meals. She denies any trauma or syncopal events. 1. Generalized weakness: etiology is unknown. Low likelihood of it being infectious considering her clinical presentation. We will check certain lab values where if deficit could clarify the etiology. 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 She denies dizziness, lightheadedness, palpitations. Unlikely the weakness is cardiac related considering she is asymptomatic and cardiac testing is uneventful. -Procalcitonin/TSH/Vitamin B12/ESR/CRP pending -UA + nitrates, WBC, bacteria. Afebrile. Urine cx pending -PT/OT to evaluate 2. KASSIDY: BUN/Creatinine 44/1.6. I suspect this is d/t poor oral intake. Baseline ~ 22/0.8. Appears hypovolemic with dry mucous membrane. -Received 1L NS in emergency room; will receive 1L gentle NS tonight -Recheck BMP tomorrow 3. Congestive heart failure -Monitor fluid overload -May continue furosemide and spironolactone 4. Atrial fibrillation -May continue Pradaxa however she is a high fall risk. Consider ASA while in the hospital 5. Hypertension: stable. May continue home medications of coreg, diltiazem, losartan. Diet: Regular VTE ppx: SCDs, Pradaxa (however a high fall risk, consider ASA while in hospital ) Code: Full Dispo: Admit to inpatient
[2018-10-27] MEDS: MEMANTINE HCL 28 MG PO SCH (20:10)
[2018-10-27] MEDS: PANTOPRAZOLE SODIUM 40 MG TAB PO SCH (20:11)
[2018-10-27] MEDS: DABIGATRAN ETEXILATE MESYL 150 MG CAP PO SCH (20:11)
[2018-10-27] MEDS: DORZOLAMIDE/TIMOLOL 10 ML OPHT.BTL LEFTEYE SCH (20:12)
[2018-10-27] MEDS ORDERED: MIRTAZAPINE 15 MG TAB PO PRN (21:00)
--- NOTE | 2018-10-28 06:48 | PDMN ---
Medical Necessity Medical necessity: Pt meets INPT criteria per MD as of 10/27/18 and MCG Systemic or Infectious Condition GRG (est. LOS >2 MN for eval/mgmt of progressive worsening of generalized body weakness since recent GI bleed, KASSIDY, bacteruria; comorbid CHF, afib on Pradaxa with high fall risk, htn, pulmonary htn, tricuspid valve insufficiency, STEVEN, PPM).
[2018-10-28] MEDS: ASCORBIC ACID 500 MG TAB PO SCH (08:50)
[2018-10-28] MEDS: PANTOPRAZOLE SODIUM 40 MG TAB PO SCH ×2 (08:50→20:06)
[2018-10-28] MEDS: CYANO/VITAMIN B12 1000 MCG TAB PO SCH (08:50)
[2018-10-28] MEDS: DABIGATRAN ETEXILATE MESYL 150 MG CAP PO SCH (08:50)
[2018-10-28] MEDS: SPIRONOLACTONE 25 MG TAB PO SCH (08:51)
[2018-10-28] MEDS: DILTIAZEM XR 240 MG CAP PO SCH (08:51)
[2018-10-28] MEDS: CARVEDILOL CR 40 MG CAP PO SCH (08:51)
[2018-10-28] MEDS: DORZOLAMIDE/TIMOLOL 10 ML OPHT.BTL LEFTEYE SCH ×2 (08:55→20:06)
[2018-10-28] MEDS ORDERED: Herbals/Supplements -Info Only PO SCH (09:00)
[2018-10-28] MEDS ORDERED: FUROSEMIDE 20 MG TAB PO SCH (09:00)
[2018-10-28] MEDS ORDERED: LOSARTAN POTASSIUM 50 MG TAB PO SCH (09:00)
--- NOTE | 2018-10-28 12:16 | ASMTCMCOM ---
CM Note CM Note Notes: Patient chart reviewed for discharge plannng purposes. 88 year old female from [facility] admitted with KASSIDY STEVEN, Afib, GI bleed, CHF. Creatinine slightly elevated. PT and OT pending. CM to juan [place] needs. Plan: TBD Date Signed: 10/28/2018 12:15 PM Electronically Signed By:Danica Pereira RN
[2018-10-28] MEDS ORDERED: NS 1,000 ML IV SCH (12:45)
--- NOTE | 2018-10-28 16:24 | HOSPPROG ---
Hospitalist Progress Note Assessment/Plan: Subjective Follow-up on acute kidney injury and weakness. Patient states she was having some lower abdomen discomfort and had is having some burning with urination. We did discuss that her urinalysis did suggest the possibility of infection. Objective Vital signs as detailed below Exam General-awake alert conversant no acute distress Heart-regular rate and rhythm no murmurs Lungs-Clear to auscultation with normal respiratory effort Abdomen-soft nontender nondistended normal bowel sounds -no Alford catheter in place Extremities-no significant pitting edema or calf pain with palpation Skin-no concerning skin rashes noted Labs as detailed below Assessment and plan Acute kidney injury-likely secondary to hypovolemia. Improved with creatinine going from 1.6-1.3. Continue IV fluids with normal saline 75 mL/hour for 1 additional L and recheck again tomorrow morning. Urinary tract infection-continue ceftriaxone pending culture results. Macrocytosis-check B12 level and folic acid level with morning labs. Dementia-suspected. Patient is on Namenda. Atrial fibrillation-patient is on Pradaxa and diltiazem and Coreg for rate control. Hypertension-appears controlled. No changes today. Obstructive sleep apnea-patient is on CPAP therapy as an outpatient. Chronic hypoxic respiratory failure-patient is on 2 L at baseline. Pulmonary hypertension. DVT prophylaxis-patient is anticoagulated. Disposition-patient was living independently with her at [facility]. Will need to see how she does with physical therapy prior to discharge. Objective: Vital Signs Temp Pulse Resp BP Pulse Ox 36.7 C 66 18 121/52 H 96 10/28/18 15:46 10/28/18 15:46 10/28/18 15:46 10/28/18 15:46 10/28/18 15:46 Laboratory Results 10/28/18 05:15 10/28/18 05:15 10/27/18 10/28/18 10/29/18 05:59 05:59 05:59 Intake Total 1505 Output Total 300 850 Balance 1205 -850 ICD10 Worksheet Patient Problems: Problems Problem Status Onset Weakness Acute CHF (congestive heart failure) Acute Elevated troponin Acute Fever Acute Pyelonephritis Acute UTI (urinary tract infection) Acute Upper GI bleed Acute
[2018-10-28] MEDS: DABIGATRAN ETEXILATE MESYL 75 MG CAP PO SCH (20:06)
[2018-10-28] MEDS: MEMANTINE HCL 28 MG PO SCH (20:07)
[2018-10-29] MEDS: CYANO/VITAMIN B12 1000 MCG TAB PO SCH (08:13)
[2018-10-29] MEDS: SPIRONOLACTONE 25 MG TAB PO SCH (08:13)
[2018-10-29] MEDS: DABIGATRAN ETEXILATE MESYL 75 MG CAP PO SCH ×2 (08:13→20:02)
[2018-10-29] MEDS: CARVEDILOL CR 40 MG CAP PO SCH (08:13)
[2018-10-29] MEDS: ASCORBIC ACID 500 MG TAB PO SCH (08:14)
[2018-10-29] MEDS: PANTOPRAZOLE SODIUM 40 MG TAB PO SCH ×2 (08:14→20:02)
[2018-10-29] MEDS: DILTIAZEM XR 240 MG CAP PO SCH (08:14)
[2018-10-29] MEDS: DORZOLAMIDE/TIMOLOL 10 ML OPHT.BTL LEFTEYE SCH ×2 (08:21→20:04)
[2018-10-29] MEDS ORDERED: NS 1,000 ML IV SCH (10:00)
--- NOTE | 2018-10-29 14:15 | HOSPPROG ---
Hospitalist Progress Note Assessment/Plan: Subjective Follow-up on acute kidney injury and weakness. No acute events overnight. No complaints of shortness of breath or swelling. Her was present at the bedside today and I updated the patient and her on her improved renal function. She noted palpitations earlier in the day but this seemed to be a temporizing thing. Objective Vital signs as detailed below Exam General-awake alert conversant no acute distress Heart-regular rate and rhythm no murmurs Lungs-Clear to auscultation with normal respiratory effort Abdomen-soft nontender nondistended normal bowel sounds -no Alford catheter in place Extremities-no significant pitting edema or calf pain with palpation Skin-no concerning skin rashes noted Labs as detailed below Assessment and plan Acute kidney injury-likely secondary to hypovolemia. Improving. I recommend we administered additional 1 L of IV fluids today at 75 mL/hour. Reassess creatinine again tomorrow morning. Urinary tract infection-continue ceftriaxone pending culture results. Urine culture or show sensitivity to ceftriaxone. Macrocytosis-B12 and folic acid levels were within normal limits. Dementia-suspected. Patient's reports there is clinical concern for Lewy body dementia in the past. Patient is on Namenda. Atrial fibrillation-patient is on Pradaxa and diltiazem and Coreg for rate control. Hypertension-appears controlled. No changes today. Obstructive sleep apnea-patient is on CPAP therapy as an outpatient. Chronic hypoxic respiratory failure-patient is on 2 L at baseline. Pulmonary hypertension. DVT prophylaxis-patient is anticoagulated. Disposition-patient was living independently with her at [facility]. Will need to see how she does with physical therapy prior to discharge. Objective: Vital Signs Temp Pulse Resp BP Pulse Ox 36.5 C 61 16 118/57 L 98 10/29/18 11:08 10/29/18 11:08 10/29/18 11:08 10/29/18 11:08 10/29/18 11:08 Microbiology 10/27/18 16:20 Urine Culture - Final Urine,Clean Catch Klebsiella Oxytoca Laboratory Results 10/29/18 04:23 10/29/18 04:23 10/28/18 10/29/18 10/30/18 05:59 05:59 05:59 Intake Total 1505 1766 700 Output Total 300 1450 600 Balance 1205 316 100 ICD10 Worksheet Patient Problems: Problems Problem Status Onset Weakness Acute CHF (congestive heart failure) Acute Elevated troponin Acute Fever Acute Pyelonephritis Acute UTI (urinary tract infection) Acute Upper GI bleed Acute
[2018-10-29] MEDS: MEMANTINE HCL 28 MG PO SCH (20:05)
[2018-10-30] MEDS: CARVEDILOL CR 40 MG CAP PO SCH (08:59)
[2018-10-30] MEDS: SPIRONOLACTONE 25 MG TAB PO SCH (08:59)
[2018-10-30] MEDS: CYANO/VITAMIN B12 1000 MCG TAB PO SCH (08:59)
[2018-10-30] MEDS: DILTIAZEM XR 240 MG CAP PO SCH (08:59)
[2018-10-30] MEDS: PANTOPRAZOLE SODIUM 40 MG TAB PO SCH ×2 (08:59→19:59)
[2018-10-30] MEDS: ASCORBIC ACID 500 MG TAB PO SCH (09:00)
[2018-10-30] MEDS: DORZOLAMIDE/TIMOLOL 10 ML OPHT.BTL LEFTEYE SCH ×2 (09:00→20:00)
[2018-10-30] MEDS: DABIGATRAN ETEXILATE MESYL 150 MG CAP PO SCH ×2 (09:52→19:59)
--- NOTE | 2018-10-30 12:32 | ASMTCMCOM ---
CM Note CM Note Notes: Pt discussed in rounds. Pt continues to progress, likely discharge back to [facility]. CM submit updates to Wendie. SERAFIN to follow. Plan: [facility] Date Signed: 10/30/2018 12:31 PM Electronically Signed By:ROLAND Castillo
--- NOTE | 2018-10-30 15:18 | HOSPPROG ---
Hospitalist Progress Note Assessment/Plan: Subjective Follow-up on acute kidney injury and weakness. No acute events overnight. No complaints of shortness of breath or swelling. Her was present at the bedside today and I updated the patient and her on her improved renal function. I informed both patient and her that the creatinine has normalized today and that she will receive a 3rd dose of ceftriaxone which should be adequate treatment for simple urinary tract infection. The patient states that her abdomen has been somewhat uncomfortable today in the epigastric region. I discussed discharging today from the hospital but she states she felt uncomfortable leaving the hospital in light of her abdominal discomfort. She was recently in the hospital and had an endoscopy performed. This showed 2 nonbleeding duodenal ulcers as well as erythematous mucosa in the stomach as well as a large hiatal hernia. She has been on proton pump inhibitors. Objective Vital signs as detailed below Exam General-awake alert conversant no acute distress Heart-regular rate and rhythm no murmurs Lungs-Clear to auscultation with normal respiratory effort Abdomen-soft nontender nondistended normal bowel sounds -no Alford catheter in place Extremities-no significant pitting edema or calf pain with palpation Skin-no concerning skin rashes noted Labs as detailed below Assessment and plan Acute kidney injury-likely secondary to hypovolemia. Resolved. Creatinine within normal limits at this time. Hold additional IV fluids. Abdominal discomfort-possibly residual discomfort from findings on upper endoscopy recently performed as detailed above. Continue with proton pump inhibitor. Continue regular diet. Reassess tomorrow and if stable or improved can return back to [facility] where she has been in independent living with her . Urinary tract infection-resolved. Klebsiella. Urine culture or show sensitivity to ceftriaxone. She has received 3 doses of ceftriaxone and currently asymptomatic. Macrocytosis-B12 and folic acid levels were within normal limits. Dementia-suspected. Patient's reports there is clinical concern for Lewy body dementia in the past. Patient is on Namenda. Atrial fibrillation-patient is on Pradaxa and diltiazem and Coreg for rate control. Hypertension-appears controlled. No changes today. Obstructive sleep apnea-patient is on CPAP therapy as an outpatient. Chronic hypoxic respiratory failure-patient is on 2 L at baseline. Pulmonary hypertension. DVT prophylaxis-patient is anticoagulated. Disposition-patient was living independently with her at [facility] and likely can returned home tomorrow if continued clinical stability. Objective: Vital Signs Temp Pulse Resp BP Pulse Ox 36.4 C 97 16 122/64 H 97 10/30/18 11:44 10/30/18 11:44 10/30/18 11:44 10/30/18 11:44 10/30/18 11:44 Microbiology 10/27/18 16:20 Urine Culture - Final Urine,Clean Catch Klebsiella Oxytoca Laboratory Results 10/30/18 04:30 10/30/18 04:30 10/29/18 10/30/18 10/31/18 05:59 05:59 05:59 Intake Total 1766 2378 Output Total 1450 1500 1 Balance 316 878 -1 ICD10 Worksheet Patient Problems: Problems Problem Status Onset Weakness Acute CHF (congestive heart failure) Acute Elevated troponin Acute Fever Acute Pyelonephritis Acute UTI (urinary tract infection) Acute Upper GI bleed Acute
[2018-10-30] MEDS: MEMANTINE HCL 28 MG PO SCH (20:27)
[2018-10-31] MEDS: DILTIAZEM XR 240 MG CAP PO SCH (08:04)
[2018-10-31 08:05] VITALS: BP 137/71
[2018-10-31] MEDS: DABIGATRAN ETEXILATE MESYL 150 MG CAP PO SCH (08:05)
[2018-10-31] MEDS: ASCORBIC ACID 500 MG TAB PO SCH (08:06)
[2018-10-31] MEDS: CARVEDILOL CR 40 MG CAP PO SCH (08:06)
[2018-10-31] MEDS: PANTOPRAZOLE SODIUM 40 MG TAB PO SCH (08:06)
[2018-10-31] MEDS: SPIRONOLACTONE 25 MG TAB PO SCH (08:07)
[2018-10-31] MEDS: CYANO/VITAMIN B12 1000 MCG TAB PO SCH (08:07)
[2018-10-31] MEDS: DORZOLAMIDE/TIMOLOL 10 ML OPHT.BTL LEFTEYE SCH (08:09)
--- NOTE | 2018-10-31 08:25 | PDIAF ---
- Diagnosis Diagnosis: UTI Code Status: Full Code - Medication Management Discharge Medications: electronically signed and located in the Home Medication List. PICC Care - Routine: N/A - Orders Services needed: Home Care, Registered Nurse, Physical Therapy, Occupational Therapy Home Care Face to Face: I certify that this patient was under my care and that I had the required [id number] encounter meeting the encounter requirements on the discharge day. My findings support the fact that the patient is homebound as defined in Home Care Face to Face Continued: CMS Chapter 7 Medicare Benefits Manual 30.1.1 , The condition of the patient is such that there exists a normal inability to leave home and consequently, leaving home would require a considerable and taxing effort. Isolation Type: None Diet Recommendation: no restrictions on diet - Follow Up Care Current Providers and Referrals: Nya Caballero MD [Primary Care Provider] - As per Instructions
[2018-10-31] MEDS ORDERED: SUCRALFATE 1 GM/10 ML UDCUP PO SCH (08:30)
--- NOTE | 2018-10-31 09:56 | ASMTDCNOTE ---
Case Management Discharge Discharge Order Complete? Answers: Yes Patient to Obtain Answers: via Family Medications Transportation Arranged Answers: Family/Friends Faxed Final Orders Answers: Yes Agency/Facility Transfer Answers: Yes Report Printed & Faxed to Receiving Agency Family Notified Answers: Yes Discharge Comments Notes: CM spoke with pt and Manuela at [facility]. Manuela reports pt lives in Independent living. CM notified MD of error in last CM note. CM spoke with family who would like homecare arranged through [facility]. CM submit referral and provided education to patient about follow-up. Pt's is to transport back to [facility]. No other CM needs identified. Plan: [facility] with support and [facility]. Date Signed: 10/31/2018 09:56 AM Electronically Signed By:ROLAND Castillo
--- NOTE | 2018-10-31 18:03 | GDS ---
DISCHARGE DIAGNOSES: 1. Acute kidney injury, resolved. 2. Urinary tract infection, status post 3 days of ceftriaxone. 3. Dementia. 4. Atrial fibrillation. 5. Chronic anticoagulation. 6. Hypertension. 7. Obstructive sleep apnea. 8. Chronic hypoxemic respiratory failure on 2 L of oxygen at baseline. 9. Pulmonary hypertension. CONSULTANTS: None. HISTORY OF DETAILS: Please see history and physical dated October 27, 2018. In brief this is an 88- year-old female with multiple medical problems, who presented to the emergency department with genera lized weakness. Workup revealed elevated BUN, creatinine and UTI. She was admitted to the hospital for further management. HOSPITAL COURSE: Patient admitted to the Medical/Surgical unit. She was treated with IV ceftriaxone . Her urine culture grew Klebsiella oxytocia, which is sensitive to ceftriaxone. She completed 3 da ys of therapy. Her symptoms are resolved. She has been afebrile and has had no evidence of sepsis. She was evaluated by therapy and felt she was safe for discharge home with home health services. On day of discharge, she is hemodynamically stable with blood pressure 137/71, heart rate 62, respira tory rate 18. She is 96% on 2 L of oxygen which is her baseline. She was noted to have a recent history of peptic ulcer disease and has been maintained on PPI therapy . She did complain of some increased epigastric discomfort prior to discharge and was started on Car afate. DISPOSITION: Patient is discharged home in stable condition with home health, PT and OT. Follow up with Dr. Nya Caballero, primary care. DISCHARGE MEDICATIONS: Please see [facility] for completed outpatient medication list. Medications on discharge include Tylenol 650 p.o. q.4 hours p.r.n., and Carafate 1 g p.o. a.c. and h.s. /[id number]/MODL
== END 2018-10-31 11:18 | disposition home health service (06) | DRG 683 ==
LOC: F1N 17:39
PROVIDERS: ADMIT Family Medicine; ATTEND Family Medicine
DX: N17.9 Acute kidney failure, unspecified (principal); N39.0 Urinary tract infection, site not specified; J96.11 Chronic respiratory failure with hypoxia; E86.9 Volume depletion, unspecified; E86.1 Hypovolemia; F03.90 Unspecified dementia, unspecified severity, without behavioral disturbance, psychotic disturbance, mood disturbance, and anxiety; I48.91 Unspecified atrial fibrillation; I10 Essential (primary) hypertension; G47.33 Obstructive sleep apnea (adult) (pediatric); I27.20 Pulmonary hypertension, unspecified; H40.9 Unspecified glaucoma; Z79.01 Long term (current) use of anticoagulants; Z99.81 Dependence on supplemental oxygen; Z95.0 Presence of cardiac pacemaker; Z88.0 Allergy status to penicillin; Z96.641 Presence of right artificial hip joint; Z96.651 Presence of right artificial knee joint
CPT/HCPCS: 82607-90; 97110-GP; 97116-GP; 97161-GP; 97165-GO; 97530-GP; J0696